=== PATIENT | male | born 1940 | race Caucasian/White ===

== ENCOUNTER 2016-10-18 23:54 | Inpatient (IN) | payer MEDICARE, OTHER ==
[2016-10-18 23:55] VITALS: BMI 27.7
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
[2016-10-19] MEDS ORDERED: Aspirin 325 mg EC Tablets PO STA (00:05)
[2016-10-19] MEDS ORDERED: Aspirin 325 mg EC Tablets PO ONE (00:14)
[2016-10-19 00:19] LABS: BASO # 0.1 K/uL (0.0-0.2); EOS # 0.4 K/uL (0.0-0.7); EOS % 3.9 % (0.0-4.0); HEMATOCRIT 35.4 % (35.0-51.0); LYMPH # 2.8 K/uL (1.0-4.3); MEAN CELL VOLUME 91.8 fL (80.0-94.0); MEAN CORPUSCULAR HEMOGLOBIN 30.8 pg (27.0-31.0); MEAN CORPUSCULAR HGB CONC 33.6 g/dL (33.0-37.0); MEAN PLATELET VOLUME 7.4 fL (7.2-11.7); MONO # 0.6 K/uL (0.0-0.8); RED CELL DISTRIBUTION WIDTH 14.7 % (11.5-14.5); WHITE BLOOD COUNT 9.2 K/uL (4.8-10.8)
[2016-10-19 00:36] LABS: ALB/GLOB RATIO 1.3 (1.0-2.1); ALKALINE PHOSPHATASE 118 U/L (38-126); ALT/SGPT 41 U/L (21-72); AST/SGOT 42 U/L (17-59); BILIRUBIN,TOTAL 0.6 mg/dL (0.2-1.3); BLOOD UREA NITROGEN 14 mg/dL (9-20); CALCIUM 8.2 mg/dl (8.6-10.4); CARBON DIOXIDE 23 mmol/L (22-30); CHLORIDE 99 mmol/L (98-107); GFR AFRICAN-AMERICAN > 60; GLUCOSE,RANDOM 114 mg/dL (75-110); POTASSIUM 4.8 mmol/L (3.6-5.2); SODIUM 132 mmol/L (132-148); TOTAL PROTEIN 7.1 g/dL (6.3-8.3)
[2016-10-19 02:39] LABS: RBC URINE 1 /hpf (0-3); URINE BILIRUBIN NEGATIVE (NEGATIVE); URINE BLOOD NEGATIVE (NEGATIVE); URINE COLOR Yellow (YELLOW); URINE GLUCOSE (UA) NORMAL (Normal); URINE KETONE NEGATIVE (NEGATIVE); URINE LEUKOCYTE ESTERASE NEG Leu/uL (Negative); URINE PROTEIN NEGATIVE (NEGATIVE); URINE UROBILINOGEN NORMAL mg/dL (0.2-1.0); WBC URINE < 1 /hpf (0-5)
--- NOTE | 2016-10-19 06:42 | CP.PCM.HP ---
<Torito Ahn - Last Filed: 10/19/16 06:49> History of Present Illness - History of Present Illness History of Present Illness: PGY1 Medicine Note for Dr. Wynn 76 yo male with a PMH of HTN and hypothyroidism presenting to the ED with complaint of chest pressure and fluttering. The patient states that he began to feel a flutter in his chest around 10pm. This feeling was soon followed by the feeling of his heart sinking and pressure in his chest. The patient states that his daughter took his blood pressure and found it to be elevated but he does not remember exactly how high. They decided to call the ambulance at this time. Patient states he has never had this happen to him before. The pressure did not radiate or cause any pain. He denies diaphoresis, n/v, visual changes, lightheadedness, dizziness or numbness/tingling. Upon arrival to the ED, EKG showed a heart rate of 160 with SVT. 25mg IVP of Cardizem was given, and the patient returned to R. The patient stated that he had no complaints, no more flutter feeling and no more pressure at the time of our arrival for examination. He just wanted to sleep. Denies f/c, d/c, weight changes or muscle weakness. PMH: HTN, Hypothyroidism PSH: none Social: Denies tobacco, alcohol and/or illicit drug use Family: unknown Allergy: pollen, NKDA Present on Admission - Present on Admission Any Indicators Present on Admission: No Review of Systems - Review of Systems All systems: reviewed and no additional remarkable complaints except - Constitutional Constitutional: As Per HPI - EENT Eyes: As Per HPI Nose/Mouth/Throat: As Per HPI - Cardiovascular Cardiovascular: As Per HPI - Respiratory Respiratory: As Per HPI - Gastrointestinal Gastrointestinal: As Per HPI - Genitourinary Genitourinary: As Per HPI - Reproductive: Male Reproductive:Male: As Per HPI - Musculoskeletal Musculoskeletal: As Per HPI - Integumentary Integumentary: As Per HPI - Neurological Neurological: As Per HPI - Psychiatric Psychiatric: As Per HPI - Endocrine Endocrine: As Per HPI - Hematologic/Lymphatic Hematologic: As Per HPI Past Patient History - Infectious Disease Hx of Infectious Diseases: None - Past Medical History & Family History Past Medical History?: Yes - Past Social History Smoking Status: Former Smoker - CARDIAC Hx Cardiac Disorders: No Hx Hypertension: Yes - PULMONARY Hx Asthma: Yes Hx Chronic Obstructive Pulmonary Disease (COPD): Yes - NEUROLOGICAL Hx Neurological Disorder: No - HEENT Hx HEENT Problems: No - RENAL Hx Chronic Kidney Disease: No - ENDOCRINE/METABOLIC Hx Endocrine Disorders: Yes Hx Hyperthyroidism: Yes - HEMATOLOGICAL/ONCOLOGICAL Hx Blood Disorders: No - INTEGUMENTARY Hx Dermatological Problems: No - MUSCULOSKELETAL/RHEUMATOLOGICAL Hx Falls: No - GASTROINTESTINAL Hx Gastrointestinal Disorders: Yes - GENITOURINARY/GYNECOLOGICAL Hx Genitourinary Disorders: No - PSYCHIATRIC Hx Substance Use: No - SURGICAL HISTORY Hx Surgeries: No - ANESTHESIA Hx Anesthesia: No Hx Anesthesia Reactions: No Hx Malignant Hyperthermia: No Has any member of the family had a problem w/ anesthesia?: No Meds Allergies/Adverse Reactions: Allergies Allergy/AdvReac Type Severity Reaction Status Date / Time pollen extracts Allergy ITCHING Verified 10/19/16 00:13 Physical Exam - Constitutional Appears: Non-toxic, No Acute Distress - Head Exam Head Exam: ATRAUMATIC, NORMOCEPHALIC - Eye Exam Eye Exam: EOMI, Normal appearance - ENT Exam ENT Exam: Mucous Membranes Moist - Respiratory Exam Respiratory Exam: Clear to Auscultation Bilateral, NORMAL BREATHING PATTERN. absent: Accessory Muscle Use, Wheezes, Respiratory Distress - Cardiovascular Exam Cardiovascular Exam: REGULAR RHYTHM, +S1, +S2 - GI/Abdominal Exam GI & Abdominal Exam: Normal Bowel Sounds, Soft. absent: Distended, Firm, Guarding, Rigid, Tenderness - Extremities Exam Extremities exam: Negative for: calf tenderness, pedal edema - Neurological Exam Neurological exam: Alert, Oriented x3 - Psychiatric Exam Psychiatric exam: Normal Affect (very tired.), Normal Mood - Skin Skin Exam: Dry, Normal Color, Warm Results - Vital Signs Recent Vital Signs: Last Vital Signs Temp 97.7 F 10/19/16 05:06 Pulse 52 L 10/19/16 05:46 Resp 16 10/19/16 05:06 BP 114/54 L 10/19/16 05:06 Pulse Ox 97 10/19/16 06:02 - Labs Result Diagrams: 10/19/16 00:15 10/19/16 00:15 Assessment & Plan - Assessment and Plan (Free Text) Assessment: Chest Pressure with SVT 25mg IVP of Cardizem given in ED --> pt returned to [facility] Cardiology Consulted - Dr. Harrell - help appreciated Trop. negative x 1 F/U ECHO Heart Healthy Diet HTN Unknown home medications Will monitor for now Hypothyroid TSH - 11.3 Prophylactic Care Lovenox 40mg SC daily Protonix 40mg PO daily Case discussed with Dr. Tianna Ahn PGY1 - Date & Time Date: 10/19/16 Time: 02:00 <Dwight Wynn - Last Filed: 10/19/16 07:27> Results - Vital Signs Recent Vital Signs: Last Vital Signs Temp 97.7 F 10/19/16 05:06 Pulse 52 L 10/19/16 05:46 Resp 16 10/19/16 05:06 BP 114/54 L 10/19/16 05:06 Pulse Ox 97 10/19/16 06:02 - Labs Result Diagrams: 10/19/16 00:15 10/19/16 00:15 Attending/Attestation - Attestation I have personally seen and examined this patient.: Yes I have fully participated in the care of the patient.: Yes I have reviewed all pertinent clinical information: Yes Notes (Text): SVT sustained causing chest pressure, resolved with single dose cardizem iv, no clear precipitating factors. Plan * observe on tele, check troponin * Low dose betablocker if tolerated * Echo to r/o any cardiomyopathy * Ischemic w/u probably out patient stress test
[2016-10-19] MEDS: Enoxaparin 40 mg Syringe SC SCH (10:10)
[2016-10-19] MEDS: Pantoprazole 40 mg EC Tab PO SCH (10:10)
--- NOTE | 2016-10-19 12:43 | RAD ---
PROCEDURE: CHEST RADIOGRAPH, 1 VIEW. Portable study 00:39. HISTORY: chest pain COMPARISON: 08/16/2015. FINDINGS: LUNGS: Clear. PLEURA: No pneumothorax or pleural fluid seen. CARDIOVASCULAR: No radiographic findings to suggest acute or significant cardiovascular disease. OSSEOUS STRUCTURES: No significant abnormalities. VISUALIZED UPPER ABDOMEN: Normal. OTHER FINDINGS: None. IMPRESSION: No active disease. No acute/significant interval changes.
--- NOTE | 2016-10-19 14:36 | CP.PCM.PN ---
<Romi Maldonado - Last Filed: 10/19/16 14:16> Subjective - Date & Time of Evaluation Date of Evaluation: 10/19/16 Time of Evaluation: 11:15 - Subjective Subjective: Resident Progress Note for Dr. Hernandez Patient seen and examined at bedside. Patient was resting in bed comfortably with daughter and son in law in the room. Patient reports his chest discomfort has resolved. Patient says his PMD Dr. Jasso, started him on synthroid 25mcg about 6 months ago for which he forgets to take sometimes. Patient was instructed PMD to have more thyroid testings done but he keeps on forgetting to do so. Patient currently denies headache, fever, chills, SOB, chest pain, nausea , vomiting, or diarrhea. Objective - Vital Signs/Intake and Output Vital Signs (last 24 hours): Temp Pulse Resp BP Pulse Ox 97.4 F L 51 L 19 122/69 100 10/19/16 08:32 10/19/16 08:32 10/19/16 08:32 10/19/16 08:32 10/19/16 08:32 - Medications Medications: Current Medications Enoxaparin Sodium (Lovenox) 40 mg SC DAILY [facility] Last Admin: 10/19/16 10:10 Dose: 40 mg Pantoprazole Sodium (Protonix Ec Tab) 40 mg PO DAILY [facility] Last Admin: 10/19/16 10:10 Dose: 40 mg Pneumococcal Polyvalent Vaccine (Pneumovax 23 Vaccine) 0.5 ml IM .ONCE ONE Stop: 10/21/16 10:01 - Labs Labs: PT 11.3 SECONDS (9.7-12.2) 10/19/16 00:15 INR 1.0 10/19/16 00:15 APTT 32 SECONDS (21-34) 10/19/16 00:15 - Constitutional Appears: Well, Non-toxic, No Acute Distress - Head Exam Head Exam: ATRAUMATIC, NORMAL INSPECTION - Eye Exam Eye Exam: EOMI, Normal appearance - ENT Exam ENT Exam: Mucous Membranes Moist - Neck Exam Neck Exam: Normal Inspection - Respiratory Exam Respiratory Exam: Clear to Ausculation Bilateral, NORMAL BREATHING PATTERN. absent: Respiratory Distress - Cardiovascular Exam Cardiovascular Exam: REGULAR RHYTHM, +S1, +S2. absent: Murmur - GI/Abdominal Exam GI & Abdominal Exam: Soft, Normal Bowel Sounds. absent: Tenderness - Extremities Exam Extremities Exam: Normal Capillary Refill - Neurological Exam Neurological Exam: Alert, Awake, Oriented x3 - Psychiatric Exam Psychiatric exam: Normal Affect, Normal Mood - Skin Skin Exam: Normal Color, Warm <Larry Hernandez - Last Filed: 10/19/16 21:48> Objective - Vital Signs/Intake and Output Vital Signs (last 24 hours): Temp Pulse Resp BP Pulse Ox 97.4 F L 54 L 20 127/61 98 10/19/16 15:40 10/19/16 21:21 10/19/16 15:40 10/19/16 15:40 10/19/16 15:40 Intake and Output: 10/19/16 10/20/16 18:59 06:59 Intake Total 480 500 Balance 480 500 - Medications Medications: Current Medications Enoxaparin Sodium (Lovenox) 40 mg SC DAILY [facility] Last Admin: 10/19/16 10:10 Dose: 40 mg Levothyroxine Sodium (Synthroid) 75 mcg PO DAILY@0630 [facility] Oxcarbazepine (Trileptal) 300 mg PO BID [facility] Pantoprazole Sodium (Protonix Ec Tab) 40 mg PO DAILY [facility] Last Admin: 10/19/16 10:10 Dose: 40 mg Pneumococcal Polyvalent Vaccine (Pneumovax 23 Vaccine) 0.5 ml IM .ONCE ONE Stop: 10/21/16 10:01 - Labs Labs: PT 11.3 SECONDS (9.7-12.2) 10/19/16 00:15 INR 1.0 10/19/16 00:15 APTT 32 SECONDS (21-34) 10/19/16 00:15 Attending/Attestation - Attestation I have personally seen and examined this patient.: Yes I have fully participated in the care of the patient.: Yes I have reviewed all pertinent clinical information, including history, physical exam and plan: Yes Notes (Text): 10/19/16 21:34 Patient was seen and examined at 10:20 AM 10/19/16 Patient was admitted by overnight Hospitalist Team for evaluation of Chest Pressure and Fluttering sensation that started at 10 PM on 10/18/16. When patient arrived in the ER he was found to be in SVT with heart rate in the 150s. He was given Cardizem 25 mg IVP and this returned him to [facility]. He was admitted to the Telemetry Unit for further monitoring. Currently upon FULL ROS there is NO chest pain, NO palpitations/fluttering, NO SOB/Cough/Wheezing, NO dysphagia/odynophagia, NO abdominal pain, NO n/v/d/c, NO black/bloody stools, NO burning/pain with urination, NO lightheadedness/ dizziness, NO headache, NO new changes in vision/eye pain/loss of vision, NO new changes in hearing/ear pain/tinnitus, NO paresthesias, NO edema Exam: General: AAOx3, NAD HEENT: NCA, EOMI, PERRLA, NO cervical/supraclavicular/submandibular lymphadenopathy, NO pharyngeal erythema/exudate, Mucous Membranes are moist, Nasal Turbinates are nonedematous/nonerythematous Cardio: NS1 and NS2, NO M/R/G Respiratory: CTA B/L, NO R/R/W GI: BSx4, Soft, NT, ND, NO HSM, NO guarding/rebound tenderness Ext: Pulses are strong and equal, Capillary Refill is 2 seconds, NO edema Neuro: CN II through XII are grossly intact Assessment and Plan: 1). SVT Cardiolgist Dr. Harrell F/U 2D Echocardiogram F/U Troponin #2 at 8:30 AM and #3 at 2:30 PM Currently heart rate is in the 50s and 60s 2). HTN Blood Pressure is currently under control and home medication of Losartan and Hydralazine (as per medication summary history) is being held. 3). Hypothyroidism Levothyroxine 75 mcg PO 1x/day 4). Trigeminal Neuralgia? Home medication of Oxcarbazepine 150 mg 2 tab PO 2x/day was started Patient explained it was for abnormal sensation around mouth and cheeks Medicine Team please call office of Neurologist Dr. Grecia Taveras on 10/20/16 for details as to why patient is on this medication 5). Prophylaxis Lovenox 40 mg SC 1x/day Protonix 40 mg PO 1x/day I spoke with patient's daughter earlier after my exam of patient and instructed her to bring in all of patient's medications from home as patient could not provide names or dosages and as [facility] [phone] did not answer phone. What daughter brought later in the evening was the Levothyroxine, Oxcarbazepine, and 5 remaining tablets of a Medrol Dose Raheel (prescribed by [facility] [employer] Dr. Hay). Medicine Team please call the office of Dr. Hay on 10/20/16 as to why patient is on this medication (which was not restarted during this admission) as patient stated that it was for phlegm but stated that he was not coughing or short of breath. Larry Hernandez D.O. 10/19/16 21:41
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
[2016-10-20] MEDS: Levothyroxine 75 MCG TAB PO SCH (06:34)
[2016-10-20 06:40] LABS: BLOOD UREA NITROGEN 19 mg/dL (9-20); CALCIUM 8.9 mg/dl (8.6-10.4); CARBON DIOXIDE 27 mmol/L (22-30); CHLORIDE 95 mmol/L (98-107); GFR AFRICAN-AMERICAN > 60; GLUCOSE,RANDOM 87 mg/dL (75-110); MAGNESIUM 1.9 mg/dL (1.6-2.3); PHOSPHOROUS 3.5 mg/dL (2.5-4.5); POTASSIUM 4.5 mmol/L (3.6-5.2); SODIUM 131 mmol/L (132-148)
[2016-10-20 06:50] LABS: BASO # 0.1 K/uL (0.0-0.2); BASO % 0.6 % (0.0-2.0); EOS # 0.4 K/uL (0.0-0.7); EOS % 4.6 % (0.0-4.0); HEMATOCRIT 36.7 % (35.0-51.0); LYMPH % 21.9 % (20.0-40.0); MEAN CELL VOLUME 92.1 fL (80.0-94.0); MEAN CORPUSCULAR HEMOGLOBIN 30.5 pg (27.0-31.0); MEAN CORPUSCULAR HGB CONC 33.1 g/dL (33.0-37.0); MEAN PLATELET VOLUME 7.1 fL (7.2-11.7); MONO # 0.7 K/uL (0.0-0.8); MONO % 7.1 % (0.0-10.0); RED CELL DISTRIBUTION WIDTH 14.5 % (11.5-14.5); WHITE BLOOD COUNT 9.3 K/uL (4.8-10.8)
[2016-10-20 07:12] LABS: THYROID STIMULATING HORMONE 4.81 mIU/L (0.46-4.68)
[2016-10-20 08:30] VITALS: RESP 20
[2016-10-20] MEDS: Enoxaparin 40 mg Syringe SC SCH (09:58)
[2016-10-20] MEDS: Pantoprazole 40 mg EC Tab PO SCH (09:58)
--- NOTE | 2016-10-20 12:56 | CP.PCM.PN ---
Subjective - Date & Time of Evaluation Date of Evaluation: 10/20/16 Time of Evaluation: 12:56 - Subjective Subjective: Pt tolerating PO had svt that terminated with meds.He was under a considerable amount of stress and was having a dispute and found his heart palpitations and alerted ems. 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 No CP,SOB,N/V,Fever, double vision ,abdominal pain Objective - Vital Signs/Intake and Output Vital Signs (last 24 hours): Temp Pulse Resp BP Pulse Ox 98.4 F 65 20 151/79 H 97 10/20/16 08:29 10/20/16 08:29 10/20/16 08:29 10/20/16 08:29 10/20/16 08:29 Intake and Output: 10/20/16 10/20/16 06:59 18:59 Intake Total 500 Balance 500 - Medications Medications: Current Medications Enoxaparin Sodium (Lovenox) 40 mg SC DAILY [facility] Last Admin: 10/20/16 09:58 Dose: 40 mg Levothyroxine Sodium (Synthroid) 75 mcg PO DAILY@0630 [facility] Last Admin: 10/20/16 06:34 Dose: 75 mcg Oxcarbazepine (Trileptal) 300 mg PO BID [facility] Last Admin: 10/20/16 09:58 Dose: 300 mg Pantoprazole Sodium (Protonix Ec Tab) 40 mg PO DAILY [facility] Last Admin: 10/20/16 09:58 Dose: 40 mg Pneumococcal Polyvalent Vaccine (Pneumovax 23 Vaccine) 0.5 ml IM .ONCE ONE Stop: 10/21/16 10:01 - Labs Labs: 10/20/16 06:22 10/20/16 06:22 PT 11.3 SECONDS (9.7-12.2) 10/19/16 00:15 INR 1.0 10/19/16 00:15 APTT 32 SECONDS (21-34) 10/19/16 00:15 - Constitutional Appears: Well - Head Exam Head Exam: ATRAUMATIC - Eye Exam Eye Exam: Normal appearance - ENT Exam ENT Exam: Mucous Membranes Moist - Respiratory Exam Respiratory Exam: Clear to Ausculation Bilateral, NORMAL BREATHING PATTERN - Cardiovascular Exam Cardiovascular Exam: REGULAR RHYTHM - GI/Abdominal Exam GI & Abdominal Exam: Normal Bowel Sounds - Exam External exam: NORMAL EXTERNAL EXAM. absent: Ecchymosis - Extremities Exam Extremities Exam: Normal Inspection. absent: Pedal Edema - Neurological Exam Neurological Exam: Alert, Awake - Psychiatric Exam Psychiatric exam: Normal Affect, Normal Mood - Skin Skin Exam: Normal Color, Warm Assessment and Plan (1) Palpitations Assessment & Plan: Continue asthma medications rate control with cardizem if tolerated refused svt ablation at present follow up out pt with pmd Status: Acute
--- NOTE | 2016-10-20 19:58 | PN ---
DATE: The patient denies any palpitation, chest pain, no reported SVT on the monitor overnight. PHYSICAL EXAMINATION VITAL SIGNS: Blood pressure 151/79, heart rate 65, temperature 98.4, respirations 20. Most of the time heart rate is in the 50s. HEENT: Normocephalic. CHEST: Clear. HEART: S1 and S2 regular. EXTREMITIES: No edema. LABORATORY DATA: Hemoglobin and hematocrit, white count and platelet counts today are within normal limits. SMA-7 within normal limit, glucose 131 and chloride of 95. Three sets of troponins are negative. Repeat TSH level is 4.81. Preliminary echo study report suggests normal ejection fraction. ASSESSMENT: 1. Reentrant supraventricular tachycardia. 2. Hypertension. 3. Hypothyroidism. 4. Mild sinus bradycardia. RECOMMENDATIONS: Continue current Synthroid. Continue telemetry monitoring. Awaiting final echo report. I requested electrophysiology consult from . Awaiting medical records from [facility] Emergency Room visit a month and half ago. Joe Harrell MD
--- NOTE | 2016-10-20 21:07 | CP.PCM.PN ---
<Torito Ahn - Last Filed: 10/20/16 21:03> Subjective - Date & Time of Evaluation Date of Evaluation: 10/20/16 Time of Evaluation: 09:50 - Subjective Subjective: PGY1 Medicine Note for for Dr. Cadet Patient seen and examined this morning. Patient is resting comfortably in bed and has no complaints. Patient states that he has not experienced any chest pressure or pain since he has been treated in the ED. Patient denies f/c, n/v, d /c, sob, cp, dizziness or lightheadedness. Objective - Vital Signs/Intake and Output Vital Signs (last 24 hours): Temp Pulse Resp BP Pulse Ox 97.7 F 59 L 20 153/76 H 96 10/20/16 16:01 10/20/16 16:01 10/20/16 16:01 10/20/16 16:01 10/20/16 16:01 Intake and Output: 10/20/16 10/21/16 18:59 06:59 Intake Total 480 Balance 480 - Medications Medications: Current Medications Enoxaparin Sodium (Lovenox) 40 mg SC DAILY [facility] Last Admin: 10/20/16 09:58 Dose: 40 mg Levothyroxine Sodium (Synthroid) 75 mcg PO DAILY@0630 [facility] Last Admin: 10/20/16 06:34 Dose: 75 mcg Oxcarbazepine (Trileptal) 300 mg PO BID [facility] Last Admin: 10/20/16 17:39 Dose: 300 mg Pantoprazole Sodium (Protonix Ec Tab) 40 mg PO DAILY [facility] Last Admin: 10/20/16 09:58 Dose: 40 mg Pneumococcal Polyvalent Vaccine (Pneumovax 23 Vaccine) 0.5 ml IM .ONCE ONE Stop: 10/21/16 10:01 - Labs Labs: 10/20/16 06:22 10/20/16 06:22 PT 11.3 SECONDS (9.7-12.2) 10/19/16 00:15 INR 1.0 10/19/16 00:15 APTT 32 SECONDS (21-34) 10/19/16 00:15 - Constitutional Appears: Non-toxic, No Acute Distress - Head Exam Head Exam: ATRAUMATIC, NORMOCEPHALIC - Eye Exam Eye Exam: EOMI, Normal appearance - ENT Exam ENT Exam: Mucous Membranes Moist - Respiratory Exam Respiratory Exam: Clear to Ausculation Bilateral, NORMAL BREATHING PATTERN. absent: Accessory Muscle Use, Wheezes, Respiratory Distress - Cardiovascular Exam Cardiovascular Exam: REGULAR RHYTHM, +S1, +S2 - GI/Abdominal Exam GI & Abdominal Exam: Soft, Normal Bowel Sounds. absent: Distended, Guarding, Rigid, Tenderness - Neurological Exam Neurological Exam: Alert, Awake, Normal Gait, Oriented x3 - Psychiatric Exam Psychiatric exam: Normal Affect, Normal Mood - Skin Skin Exam: Dry, Normal Color, Warm Assessment and Plan - Assessment and Plan (Free Text) Plan: 1). SVT Cardiolgist Dr. Harrell F/U 2D Echocardiogram - awaiting report Troponin negative x 3 Currently heart rate is in the low 50s and 60s F/U CT head w/o; Carotid Doppler, per cardio recs 2). HTN Blood Pressure is currently under control and home medication of Losartan and Hydralazine (as per medication summary history) is being held. 3). Hypothyroidism Levothyroxine 75 mcg PO 1x/day TSH 4.81; Free T4 .42 4). Trigeminal Neuralgia? Home medication of Oxcarbazepine 150 mg 2 tab PO 2x/day was started Patient explained it was for abnormal sensation around mouth and cheeks Medicine Team please call office of Neurologist Dr. Grecia Taveras on 10/20/16 for details as to why patient is on this medication - Called, awaiting return call 5). Prophylaxis Lovenox 40 mg SC 1x/day Protonix 40 mg PO 1x/day <García Cadet - Last Filed: 11/24/16 15:15> Objective - Vital Signs/Intake and Output Vital Signs (last 24 hours): Temp Pulse Resp BP Pulse Ox 97.9 F 68 20 129/75 98 10/21/16 16:00 10/21/16 16:00 10/21/16 16:00 10/21/16 16:00 10/21/16 16:00 - Labs Labs: 10/20/16 06:22 10/20/16 06:22 PT 11.3 SECONDS (9.7-12.2) 10/19/16 00:15 INR 1.0 10/19/16 00:15 APTT 32 SECONDS (21-34) 10/19/16 00:15 Attending/Attestation - Attestation I have personally seen and examined this patient.: Yes I have fully participated in the care of the patient.: Yes I have reviewed all pertinent clinical information, including history, physical exam and plan: Yes Notes (Text): 1). SVT 2). HTN 3). Hypothyroidism 4). Trigeminal Neuralgia?
--- NOTE | 2016-10-20 23:41 | CARD ---
APPROVED REPORT EXAM: Two-dimensional and M-mode echocardiogram with Doppler and color Doppler. Other Information Quality : GoodRhythm : Atrial Fibrillation INDICATION Chest pressure Palpitations RISK FACTORS Hypertension M-Mode DIMENSIONS RVDd1.65 (2.1-3.2cm)Left Atrium (MM)2.76 (2.5-4.0cm) IVSd1.05 (0.7-1.1cm)Aortic Root4.29 (2.2-3.7cm) LVDd5.00 (4.0-5.6cm)Aortic Cusp Exc.1.86 (1.5-2.0cm) PWd0.93 (0.7-1.1cm)FS (%) 40 % LVDs2.98 (2.0-3.8cm)LVEF (%)71 (>50%) Mitral Valve MV E Kfeyybzk24.5cm/sMV A Vghbpqdi807.4cm/sE/A ratio0.5 TDI E/Lateral E'0.0E/Medial E'0.0 Tricuspid Valve TR Peak Iwmqprws319en/sTR Peak Gr.[id number] LEFT VENTRICLE The left ventricle is normal size. There is normal left ventricular wall thickness. Left ventricle systolic function is normal with Ejection Fraction of >70%. There is normal LV segmental wall motion. Transmitral Doppler flow pattern is abnormal.Grade I-abnormal relaxation pattern. No left ventricle thrombus noted on this study. RIGHT VENTRICLE The right ventricle is normal size. The right ventricular systolic function is normal. ATRIA The left atrium size is normal. The right atrium size is normal. AORTIC VALVE The aortic valve is mildly sclerotic. No aortic regurgitation is present. There is no aortic valvular stenosis. There is no aortic valvular vegetation. MITRAL VALVE Mitral annular calcification is moderate. There is no evidence of mitral valve prolapse. There is no mitral valve stenosis. There is no mitral valve regurgitation noted. TRICUSPID VALVE The tricuspid valve is normal in structure. There is mild tricuspid regurgitation. Right ventricular systolic pressure is estimated at less than 30 mmHg. There is no pulmonary hypertension. There is no tricuspid valve prolapse or vegetation. There is no tricuspid valve stenosis. PULMONIC VALVE The pulmonic valve is not well visualized. GREAT VESSELS There is moderate aortic root dilatation. The IVC is normal in size and collapses >50% with inspiration. PERICARDIAL EFFUSION There is no pericardial effusion. There is no pleural effusion. <Conclusion> The left ventricle is normal size. Left ventricle systolic function is normal with Ejection Fraction of >70%. Transmitral Doppler flow pattern is abnormal.Grade I-abnormal relaxation pattern. The right ventricle is normal size. The right ventricular systolic function is normal. The left atrium size is normal. The right atrium size is normal. There is mild tricuspid regurgitation. There is moderate aortic root dilatation.
[2016-10-21] MEDS ORDERED: Albuterol-Ipratrop 3 mg / 0.5 (3 ml) UD INH STA (03:45)
[2016-10-21] MEDS: Levothyroxine 75 MCG TAB PO SCH (06:33)
--- NOTE | 2016-10-21 09:33 | CT ---
PROCEDURE: CT HEAD WITHOUT CONTRAST. HISTORY: New onset arrhythmia COMPARISON: None available. TECHNIQUE: Axial computed tomography images were obtained through the head/brain without intravenous contrast. Radiation dose: Total exam DLP = 879.55 mGy-cm. This CT exam was performed using one or more of the following dose reduction techniques: Automated exposure control, adjustment of the mA and/or kV according to patient size, and/or use of iterative reconstruction technique. FINDINGS: HEMORRHAGE: No acute parenchymal, subarachnoid or extra-axial hemorrhage. BRAIN: There is a wedge-shaped area of CSF like attenuation in the right parasagittal posterior fossa that may represent a prominent right wing of the cisterna magna or an area of encephalomalacia. Followup nonemergent MRI of the brain could be performed further evaluation. Additionally, there also appears to be mild chronic periventricular white matter ischemic changes that extend peripherally into the deep white matter both cerebral hemispheres. Moderate atrophy. VENTRICLES: No evidence of obstructive hydrocephalus CALVARIUM: Unremarkable. PARANASAL SINUSES: Opacification right chamber sphenoid sinus. MASTOID AIR CELLS: Unremarkable as visualized. No inflammatory changes. OTHER FINDINGS: Changes of bilateral cataract surgery IMPRESSION: No acute intracranial hemorrhage. Wedge-shaped area of CSF like attenuation right parasagittal posterior fossa region which could represent of prominent right wing cisterna magna or an area of encephalomalacia. Followup nonemergent MRI could be performed further evaluation. Mild chronic periventricular white matter ischemic changes Moderate atrophy.
[2016-10-21 09:42] VITALS: O2SAT 98
[2016-10-21] MEDS: Pantoprazole 40 mg EC Tab PO SCH (09:42)
[2016-10-21] MEDS: Enoxaparin 40 mg Syringe SC SCH (09:43)
[2016-10-21 09:49] VITALS: PULSE 68
[2016-10-21] MEDS ORDERED: Pneumococcal 23-Valent Vaccine IM ONE (10:00)
--- NOTE | 2016-10-21 10:25 | CP.PCM.PN ---
<ELLYN LOZANO - Last Filed: 10/21/16 17:20> Subjective - Date & Time of Evaluation Date of Evaluation: 10/21/16 Time of Evaluation: 10:21 - Subjective Subjective: Ellyn Lozano, PGY1, Progress Note for Dr. Mehta: Pt seen and examined at bedside. No acute events overnight. Denies cp, sob, diaphoresis, n/v/d, f/c, abdmonial pain, palpitations/fluttering, dysuria. ST elevations noted on tele monitor, will obtain 12 lead EKG. Objective - Vital Signs/Intake and Output Vital Signs (last 24 hours): Temp Pulse Resp BP Pulse Ox 97.4 F L 68 20 161/79 H 98 10/21/16 08:30 10/21/16 09:49 10/21/16 08:30 10/21/16 09:49 10/21/16 08:30 - Medications Medications: Current Medications Enoxaparin Sodium (Lovenox) 40 mg SC DAILY [facility] Last Admin: 10/21/16 09:43 Dose: 40 mg Levothyroxine Sodium (Synthroid) 75 mcg PO DAILY@0630 [facility] Last Admin: 10/21/16 06:33 Dose: 75 mcg Oxcarbazepine (Trileptal) 300 mg PO BID [facility] Last Admin: 10/21/16 09:42 Dose: 300 mg Pantoprazole Sodium (Protonix Ec Tab) 40 mg PO DAILY [facility] Last Admin: 10/21/16 09:42 Dose: 40 mg - Labs Labs: 10/20/16 06:22 10/20/16 06:22 PT 11.3 SECONDS (9.7-12.2) 10/19/16 00:15 INR 1.0 10/19/16 00:15 APTT 32 SECONDS (21-34) 10/19/16 00:15 - Constitutional Appears: No Acute Distress - Head Exam Head Exam: ATRAUMATIC, NORMOCEPHALIC - Eye Exam Eye Exam: PERRL - ENT Exam ENT Exam: Mucous Membranes Moist - Respiratory Exam Respiratory Exam: Clear to Ausculation Bilateral - Cardiovascular Exam Cardiovascular Exam: RRR, +S1, +S2. absent: Murmur - GI/Abdominal Exam GI & Abdominal Exam: Soft, Normal Bowel Sounds. absent: Tenderness - Extremities Exam Extremities Exam: absent: Calf Tenderness, Pedal Edema - Neurological Exam Neurological Exam: Alert, Awake, Oriented x3 - Psychiatric Exam Psychiatric exam: Normal Mood - Skin Skin Exam: Dry, Intact, Warm Assessment and Plan - Assessment and Plan (Free Text) Assessment: 76M with PMH HTN, hypothyroidism, presents with new onset of SVT. In ED, HR 158 , SVT, Cardizem 25mg IVP given, which converted to NSR. Trops neg x3, BNP 209, echo shows EF>70%, no dilated CM, grade1 abnormal relaxations pattern, moderate aortic root dilatation. Currently, pt's HR controlled, 53-68, stable, can discharge on digoxin 0.125 mg Po daily, f/u Dr. Armijo (Cardio) in 1 week. Plan: New onset SVT/afib: - On admission, EKG HR 158, afib, RBBB. Pt c/o chest pressure and fluttering few hours [employer]. Denied diaphoresis, f/c/n/v/d, syncope, abdominal pain. Cardizem 25mg IVP given ->converted to NSR. - Echo 10/19 shows EF>70%, grade 1 abnormal relaxation pattern, mild tricuspid regurgutation, moderate aortic root dilatation. - Head CT 10/20 shows no ICH. prominent R wing cisterna magna or area of encephalomalacia. F/u MRI. mild chronic periventricular white matter ischemia. moderate atrophy. - F/u carotic doppler results, study completed - CXR neg for infiltrates or pleural effusions. - trop negx3, bnp 209 - home meds losartan and hydralazine held for hypotension. - Can discharge pt, on digoxin 0.125 mg PO daily, f/u with Dr. Armijo within 1 week, may need SVT ablation (outpatient if necessary). - Can resume home BP meds losartan and hydralazine as well. Discussed with Dr. Mehta. Ellyn Lozano, PGY1 <Diony Mehta - Last Filed: 11/02/16 05:57> Objective - Vital Signs/Intake and Output Vital Signs (last 24 hours): Temp Pulse Resp BP Pulse Ox 97.9 F 68 20 129/75 98 10/21/16 16:00 10/21/16 16:00 10/21/16 16:00 10/21/16 16:00 10/21/16 16:00 - Labs Labs: 10/20/16 06:22 10/20/16 06:22 PT 11.3 SECONDS (9.7-12.2) 10/19/16 00:15 INR 1.0 10/19/16 00:15 APTT 32 SECONDS (21-34) 10/19/16 00:15 Attending/Attestation - Attestation I have personally seen and examined this patient.: Yes I have fully participated in the care of the patient.: Yes I have reviewed all pertinent clinical information, including history, physical exam and plan: Yes Notes (Text): 11/02/16 05:56 Pt of followed by Dr Zofia MACKEY now under control pt states brought on by sress will Rx rate control med and follow up with pmd as out pt
--- NOTE | 2016-10-21 15:08 | CP.PCM.DIS ---
<Ty Garnett - Last Filed: 10/21/16 21:17> Provider - Provider Date of Admission: 10/19/16 01:33 Attending physician: Dwight Wynn MD Consults: Cards (Tyson) Time Spent in preparation of Discharge (in minutes): 60 Hospital Course - Lab Results Lab Results: Most Recent Lab Values WBC 9.3 K/uL (4.8-10.8) 10/20/16 06:22 RBC 3.99 Mil/uL (4.40-5.90) L 10/20/16 06:22 Hgb 12.1 g/dL (12.0-18.0) 10/20/16 06:22 Hct 36.7 % (35.0-51.0) 10/20/16 06:22 MCV 92.1 fL (80.0-94.0) 10/20/16 06:22 MCH 30.5 pg (27.0-31.0) 10/20/16 06:22 MCHC 33.1 g/dL (33.0-37.0) 10/20/16 06:22 RDW 14.5 % (11.5-14.5) 10/20/16 06:22 Plt Count 244 K/uL (130-400) 10/20/16 06:22 MPV 7.1 fL (7.2-11.7) L 10/20/16 06:22 Neut % (Auto) 65.8 % (50.0-75.0) 10/20/16 06:22 Lymph % (Auto) 21.9 % (20.0-40.0) 10/20/16 06:22 Walker % (Auto) 7.1 % (0.0-10.0) 10/20/16 06:22 Eos % (Auto) 4.6 % (0.0-4.0) H 10/20/16 06:22 Baso % (Auto) 0.6 % (0.0-2.0) 10/20/16 06:22 Neut # 6.1 K/uL (1.8-7.0) 10/20/16 06:22 Lymph # 2.0 K/uL (1.0-4.3) 10/20/16 06:22 Walker # 0.7 K/uL (0.0-0.8) 10/20/16 06:22 Eos # 0.4 K/uL (0.0-0.7) 10/20/16 06:22 Baso # 0.1 K/uL (0.0-0.2) 10/20/16 06:22 PT 11.3 SECONDS (9.7-12.2) 10/19/16 00:15 INR 1.0 10/19/16 00:15 APTT 32 SECONDS (21-34) 10/19/16 00:15 Sodium 131 mmol/L (132-148) L 10/20/16 06:22 Potassium 4.5 mmol/L (3.6-5.2) 10/20/16 06:22 Chloride 95 mmol/L (98-107) L 10/20/16 06:22 Carbon Dioxide 27 mmol/L (22-30) 10/20/16 06:22 Anion Gap 14 (10-20) 10/20/16 06:22 BUN 19 mg/dL (9-20) 10/20/16 06:22 Creatinine 0.9 MG/DL (0.8-1.5) 10/20/16 06:22 Est GFR ( Amer) > 60 10/20/16 06:22 Est GFR (Non-Af Amer) > 60 10/20/16 06:22 Random Glucose 87 mg/dL (75-110) 10/20/16 06:22 Calcium 8.9 mg/dl (8.6-10.4) 10/20/16 06:22 Phosphorus 3.5 mg/dL (2.5-4.5) 10/20/16 06:22 Magnesium 1.9 mg/dL (1.6-2.3) 10/20/16 06:22 Total Bilirubin 0.6 mg/dL (0.2-1.3) 10/19/16 00:15 AST 42 U/L (17-59) 10/19/16 00:15 ALT 41 U/L (21-72) 10/19/16 00:15 Alkaline Phosphatase 118 U/L (38-126) 10/19/16 00:15 Troponin I < 0.0120 ng/mL (0.00-0.120) 10/21/16 13:54 NT-Pro-B Natriuret Pep 209 pg/mL (0-900) 10/19/16 00:15 Total Protein 7.1 g/dL (6.3-8.3) 10/19/16 00:15 Albumin 4.0 g/dL (3.5-5.0) 10/19/16 00:15 Globulin 3.1 gm/dL (2.2-3.9) 10/19/16 00:15 Albumin/Globulin Ratio 1.3 (1.0-2.1) 10/19/16 00:15 Free T4 0.42 ng/dL (0.78-2.19) L 10/20/16 06:22 TSH 3rd Generation 4.81 mIU/L (0.46-4.68) H 10/20/16 06:22 Urine Color Yellow (YELLOW) 10/19/16 00:05 Urine Clarity Clear (Clear) 10/19/16 00:05 Urine pH 6.0 (5.0-8.0) 10/19/16 00:05 Ur Specific [place] 1.014 (1.003-1.030) 10/19/16 00:05 Urine Protein Negative mg/dL (NEGATIVE) 10/19/16 00:05 Urine Glucose (UA) Normal mg/dL (Normal) 10/19/16 00:05 Urine Ketones Negative mg/dL (NEGATIVE) 10/19/16 00:05 Urine Blood Negative (NEGATIVE) 10/19/16 00:05 Urine Nitrate Negative (NEGATIVE) 10/19/16 00:05 Urine Bilirubin Negative (NEGATIVE) 10/19/16 00:05 Urine Urobilinogen Normal mg/dL (0.2-1.0) 10/19/16 00:05 Ur Leukocyte Esterase Neg Irma/uL (Negative) 10/19/16 00:05 Urine WBC (Auto) < 1 /hpf (0-5) 10/19/16 00:05 Urine RBC (Auto) 1 /hpf (0-3) 10/19/16 00:05 - Hospital Course Hospital Course: 76 yo male with a PMH of HTN and hypothyroidism presenting to the ED with complaint of chest pressure and fluttering. The patient states that he began to feel a flutter in his chest around 10pm. This feeling was soon followed by the feeling of his heart sinking and pressure in his chest. The patient states that his daughter took his blood pressure and found it to be elevated but he does not remember exactly how high. They decided to call the ambulance at this time. Patient states he has never had this happen to him before. The pressure did not radiate or cause any pain. He denies diaphoresis, n/v, visual changes, lightheadedness, dizziness or numbness/tingling. Upon arrival to the ED, EKG showed a heart rate of 160 with SVT. 25mg IVP of Cardizem was given, and the patient returned to [facility]. The patient stated that he had no complaints, no more flutter feeling and no more pressure at the time of our arrival for examination. He just wanted to sleep. Denies f/c, d/c, weight changes or muscle weakness. patient had 3 negative trops and he remained in Normal sinus rhythm. An Echo showed an EF of >70%. He was cleared from a cardiac standpoint and was told to follow up in the office to set up a possible SVT ablation. - Date & Time of H&P Date of H&P: 10/19/16 Time of H&P: 06:30 Discharge Exam - Head Exam Head Exam: ATRAUMATIC, NORMOCEPHALIC - Eye Exam Eye Exam: EOMI - ENT Exam ENT Exam: Mucous Membranes Moist - Respiratory Exam Respiratory Exam: NORMAL BREATHING PATTERN, UNREMARKABLE - Cardiovascular Exam Cardiovascular Exam: REGULAR RHYTHM, RRR. absent: Gallop, Irregular Rhythm, JVD , Rubs, Systolic Murmur - GI/Abdominal Exam GI & Abdominal Exam: Normal Bowel Sounds, Soft. absent: Distended, Firm, Tenderness - Neurological Exam Neurological exam: Alert, Oriented x3 - Psychiatric Exam Psychiatric exam: Normal Affect, Normal Mood - Skin Skin Exam: Dry, Intact, Normal Color, Warm Discharge Plan - Discharge Medications Prescriptions: Levothyroxine [Synthroid] 75 mcg PO DAILY@0630 #30 tab Losartan 25 mg PO DAILY #30 OXcarbazepine [Trileptal] 300 mg PO BID #60 tab - Follow Up Plan Condition: FAIR Disposition: HOME/ ROUTINE Instructions: Digoxin (By mouth), Levothyroxine (By mouth), Pneumococcal Polyvalent Vaccine (By injection), Losartan (By mouth), Oxcarbazepine (By mouth) , Atrial Fibrillation (DC), Supraventricular Tachycardia (DC), Hib Vaccine (DC) Additional Instructions: Patient is stable and cleared for discharge from a Cardiac standpoint. He should follow up in Dr. Mehta's office in 1 week. The number to the office is [phone] Patient is stable and cleared for dischard from a medical standpoint. He should follow up with his primary doctor in 1 weeks time. Prescription information to be given at time of discharge. If symptoms return he should return to the ER Pt agrees with the plan Referrals: Diony Mehta MD [Staff Provider] - Clinical Quality Measures - Date & Time of Discharge Summary Date of Discharge Summary: 10/21/16 Time of Discharge Summary: 21:21 <García Cadet - Last Filed: 11/24/16 15:16> Provider - Provider Date of Admission: 10/19/16 01:33 Attending physician: Dwight Wynn MD Hospital Course - Lab Results Lab Results: Most Recent Lab Values WBC 9.3 K/uL (4.8-10.8) 10/20/16 06:22 RBC 3.99 Mil/uL (4.40-5.90) L 10/20/16 06:22 Hgb 12.1 g/dL (12.0-18.0) 10/20/16 06:22 Hct 36.7 % (35.0-51.0) 10/20/16 06:22 MCV 92.1 fL (80.0-94.0) 10/20/16 06:22 MCH 30.5 pg (27.0-31.0) 10/20/16 06:22 MCHC 33.1 g/dL (33.0-37.0) 10/20/16 06:22 RDW 14.5 % (11.5-14.5) 10/20/16 06:22 Plt Count 244 K/uL (130-400) 10/20/16 06:22 MPV 7.1 fL (7.2-11.7) L 10/20/16 06:22 Neut % (Auto) 65.8 % (50.0-75.0) 10/20/16 06:22 Lymph % (Auto) 21.9 % (20.0-40.0) 10/20/16 06:22 Walker % (Auto) 7.1 % (0.0-10.0) 10/20/16 06:22 Eos % (Auto) 4.6 % (0.0-4.0) H 10/20/16 06:22 Baso % (Auto) 0.6 % (0.0-2.0) 10/20/16 06:22 Neut # 6.1 K/uL (1.8-7.0) 10/20/16 06:22 Lymph # 2.0 K/uL (1.0-4.3) 10/20/16 06:22 Walker # 0.7 K/uL (0.0-0.8) 10/20/16 06:22 Eos # 0.4 K/uL (0.0-0.7) 10/20/16 06:22 Baso # 0.1 K/uL (0.0-0.2) 10/20/16 06:22 PT 11.3 SECONDS (9.7-12.2) 10/19/16 00:15 INR 1.0 10/19/16 00:15 APTT 32 SECONDS (21-34) 10/19/16 00:15 Sodium 131 mmol/L (132-148) L 10/20/16 06:22 Potassium 4.5 mmol/L (3.6-5.2) 10/20/16 06:22 Chloride 95 mmol/L (98-107) L 10/20/16 06:22 Carbon Dioxide 27 mmol/L (22-30) 10/20/16 06:22 Anion Gap 14 (10-20) 10/20/16 06:22 BUN 19 mg/dL (9-20) 10/20/16 06:22 Creatinine 0.9 MG/DL (0.8-1.5) 10/20/16 06:22 Est GFR ( Amer) > 60 10/20/16 06:22 Est GFR (Non-Af Amer) > 60 10/20/16 06:22 Random Glucose 87 mg/dL (75-110) 10/20/16 06:22 Calcium 8.9 mg/dl (8.6-10.4) 10/20/16 06:22 Phosphorus 3.5 mg/dL (2.5-4.5) 10/20/16 06:22 Magnesium 1.9 mg/dL (1.6-2.3) 10/20/16 06:22 Total Bilirubin 0.6 mg/dL (0.2-1.3) 10/19/16 00:15 AST 42 U/L (17-59) 10/19/16 00:15 ALT 41 U/L (21-72) 10/19/16 00:15 Alkaline Phosphatase 118 U/L (38-126) 10/19/16 00:15 Troponin I < 0.0120 ng/mL (0.00-0.120) 10/21/16 13:54 NT-Pro-B Natriuret Pep 209 pg/mL (0-900) 10/19/16 00:15 Total Protein 7.1 g/dL (6.3-8.3) 10/19/16 00:15 Albumin 4.0 g/dL (3.5-5.0) 10/19/16 00:15 Globulin 3.1 gm/dL (2.2-3.9) 10/19/16 00:15 Albumin/Globulin Ratio 1.3 (1.0-2.1) 10/19/16 00:15 Free T4 0.42 ng/dL (0.78-2.19) L 10/20/16 06:22 TSH 3rd Generation 4.81 mIU/L (0.46-4.68) H 10/20/16 06:22 Urine Color Yellow (YELLOW) 10/19/16 00:05 Urine Clarity Clear (Clear) 10/19/16 00:05 Urine pH 6.0 (5.0-8.0) 10/19/16 00:05 Ur Specific [place] 1.014 (1.003-1.030) 10/19/16 00:05 Urine Protein Negative mg/dL (NEGATIVE) 10/19/16 00:05 Urine Glucose (UA) Normal mg/dL (Normal) 10/19/16 00:05 Urine Ketones Negative mg/dL (NEGATIVE) 10/19/16 00:05 Urine Blood Negative (NEGATIVE) 10/19/16 00:05 Urine Nitrate Negative (NEGATIVE) 10/19/16 00:05 Urine Bilirubin Negative (NEGATIVE) 10/19/16 00:05 Urine Urobilinogen Normal mg/dL (0.2-1.0) 10/19/16 00:05 Ur Leukocyte Esterase Neg Irma/uL (Negative) 10/19/16 00:05 Urine WBC (Auto) < 1 /hpf (0-5) 10/19/16 00:05 Urine RBC (Auto) 1 /hpf (0-3) 10/19/16 00:05 Attending/Attestation - Attestation I have personally seen and examined this patient.: Yes I have fully participated in the care of the patient.: Yes I have reviewed all pertinent clinical information, including history, physical exam and plan: Yes Notes (Text): SVT follow up with cards re possible ablation
[2016-10-21 16:03] VITALS: BP 129/75; TEMP 97.9
--- NOTE | 2016-10-22 01:25 | PN ---
DATE: 10/21/2016 SUBJECTIVE: The patient . No reported SVT. PHYSICAL EXAMINATION: VITAL SIGNS: Blood pressure 129/75, heart rate 68, temperature 97.9, respirations 20. HEENT: Normocephalic. CHEST: Clear. HEART: S1 and S2 regular. ABDOMEN: Soft. EXTREMITIES: No edema. LABORATORY DATA: Total of four troponins are negative. ASSESSMENT: 1. Paroxysmal reentrant supraventricular tachycardia. 2. Hypertension. 3. Hypothyroidism. RECOMMENDATIONS: Continue current Synthroid, which was increased to 75 mcg once a day. Case was discussed with Dr. Mehta. The patient will see Dr. Mehta as an outpatient to be scheduled for EP study with possible ablation. Joe Harrell MD
--- NOTE | 2016-10-22 11:49 | VASCLAB ---
PROCEDURE: HISTORY: New onset Arrhythmia COMPARISON: None available. TECHNIQUE: Grayscale and duplex Doppler evaluation of the cervical carotid and vertebral arteries were performed. The common carotid, carotid bifurcations and cervical Internal Carotid Artery (ICA) and proximal External Carotid Artery (ECA) were evaluated. The vertebral arteries were evaluated for gross patency and flow direction. Report prepared by Andres Grande, BS, RVT FINDINGS: RIGHT CAROTID ARTERIES: 1. Common Carotid Artery: No significant focal plaque formation of the right common carotid artery. Maximum Peak Systolic velocity: 91 cm/sec: End-diastolic velocity 17 cm/sec. 2. Carotid Bifurcation: Heterogeneous plaque formation. Maximum Peak Systolic velocity: 78 cm/sec: End-diastolic velocity 17 cm/sec. 3. Internal Carotid Artery: Minimal plaque formation of the right proximal ICA which does not result in hemodynamically significant stenosis. Plaque description: Heterogeneous 3.1. Proximal Segment: Peak systolic velocity 95 cm/sec: End-diastolic velocity 18 cm/sec - % stenosis 0-15% 3.2. Middle Segment: Peak systolic velocity 68 cm/sec: End-diastolic velocity 11 cm/sec - % stenosis 0-15% 3.3. Distal Segment: Peak systolic velocity 71 cm/sec: End-diastolic velocity 17 cm/sec - % stenosis 0-15% 4. External Carotid Artery: No significant focal plaque formation. Peak systolic velocity 90 cm/sec 5. ICA/CCA Ratio: 1.0 LEFT CAROTID ARTERIES: 1. Common Carotid Artery: No significant focal plaque formation of the left common carotid artery. Maximum Peak Systolic velocity: 60 cm/sec: End-diastolic velocity 14 cm/sec. 2. Carotid Bifurcation: plaque formation. Maximum Peak Systolic velocity: 67 cm/sec: End-diastolic velocity 13 cm/sec. 3. Internal Carotid Artery: Plaque description: 3.1. Proximal Segment: Peak systolic velocity 60 cm/sec: End-diastolic velocity 15 cm/sec - % stenosis 0-15% 3.2. Middle Segment: Peak systolic velocity 98 cm/sec: End-diastolic velocity 30 cm/sec - % stenosis 0-15% 3.3. Distal Segment: Peak systolic velocity 49 cm/sec: End-diastolic velocity 12 cm/sec - % stenosis 0-15% 4. External Carotid Artery: No significant focal plaque formation. Peak systolic velocity 79 cm/sec 5. ICA/CCA Ratio: 1.6 VERTEBRAL ARTERIES: 1. Right Vertebral Artery: The right vertebral artery flow direction is antegrade. 2. Left Vertebral Artery: The left vertebral artery flow direction is antegrade. OTHER FINDINGS: 1. Right Brachial Blood pressure: 164 mmHg. 2. Left Brachial Blood pressure: 160 mmHg. IMPRESSION: RIGHT: Duplex scan does not suggest hemodynamically significant stenosis of the right extracranial carotid arteries. LEFT: Duplex scan does not suggest hemodynamically significant stenosis of the left extracranial carotid arteries.
--- NOTE | 2016-10-22 18:09 | CARD ---
APPROVED REPORT EKG Measurement Heart [id number] <Conclusion> Supraventricular tachycardia Left axis deviation Incomplete right bundle branch block Nonspecific ST abnormality Abnormal ECG
--- NOTE | 2016-10-29 14:28 | CARD ---
APPROVED REPORT EKG Measurement Heart [id number] <Conclusion> Sinus bradycardia Otherwise normal ECG
== END 2016-10-21 16:21 | disposition home or self-care (01) | DRG 310 ==
LOC: C.ER 23:54 → C.6T 10-19 01:33 → C.9E 10-19 03:37 → C.5T 10-19 04:53
PROVIDERS: ADMIT Internal Medicine; ATTEND Internal Medicine
DX: I47.1 Supraventricular tachycardia (principal); J44.9 Chronic obstructive pulmonary disease, unspecified; I48.91 Unspecified atrial fibrillation; I10 Essential (primary) hypertension; E03.9 Hypothyroidism, unspecified; E05.90 Thyrotoxicosis, unspecified without thyrotoxic crisis or storm; G50.0 Trigeminal neuralgia; J45.909 Unspecified asthma, uncomplicated; Z87.891 Personal history of nicotine dependence; R00.1 Bradycardia, unspecified

== ENCOUNTER 2016-12-05 11:22 | Inpatient (IN) | payer MEDICARE, OTHER ==
[2016-12-05 11:36] VITALS: BMI 25.0
[2016-12-05] MEDS ORDERED: Sodium Chloride 0.9% 1,000 ML IV ONE (12:18)
--- NOTE | 2016-12-05 12:21 | C.PDOC ---
History Of Present Illness 76 year old male with PMH of HTN and hypothyroidism comes in complaining of constipation for 4 days. Patient notes trying to drink prune juice yesterday, but felt nauseous and vomited. Patient reports vomiting any time he eats or drinks and now feels weak and "uncomfortable". He reports dry mouth and unable to urinate today. Denies abdominal pain, fever, chills, or any other associated complaints. Patient admits flatulence. Admits to having constipations before. Time Seen by Provider: 12/05/16 12:02 Chief Complaint (Nursing): GI Problem History Per: Patient History/Exam Limitations: no limitations Onset/Duration Of Symptoms: Days (4) Current Symptoms Are (Timing): Still Present Severity: Mild Associated Symptoms: Nausea, Vomiting Recent travel outside of the [place]: No Additional History Per: Patient Past Medical History Reviewed: Historical Data, Nursing Documentation, Vital Signs Vital Signs: Last Vital Signs Temp 97.6 F 12/05/16 11:36 Pulse 56 L 12/05/16 15:59 Resp 18 12/05/16 15:59 BP 173/70 H 12/05/16 15:59 Pulse Ox 99 12/05/16 17:49 - Medical History PMH: Asthma, COPD, HTN, Hypothyroidism Surgical History: No Surg Hx Family History: States: Unknown Family Hx - Social History Hx Alcohol Use: No Hx Substance Use: No - Immunization History Hx Tetanus Toxoid Vaccination: Yes Hx Influenza Vaccination: Yes Hx Pneumococcal Vaccination: Yes Review Of Systems Constitutional: Negative for: Fever, Chills Cardiovascular: Negative for: Chest Pain, Palpitations Respiratory: Negative for: Cough, Shortness of Breath Gastrointestinal: Positive for: Nausea, Vomiting, Constipation. Negative for: Abdominal Pain Neurological: Negative for: Weakness, Numbness, Headache, Dizziness Physical Exam - Physical Exam Appears: Non-toxic, No Acute Distress, Other (dehydrated) Skin: Warm, Dry Head: Atraumatic, Normacephalic Eye(s): bilateral: Normal Inspection, EOMI Nose: Normal Oral Mucosa: Dry Lips: Other (Dry) Neck: Normal ROM, Supple Chest: Symmetrical Cardiovascular: Rhythm Regular, No Murmur Respiratory: Normal Breath Sounds, No Rales, No Rhonchi, No Wheezing Gastrointestinal/Abdominal: Soft, No Tenderness, No Distention, No Rebound Extremity: Bilateral: Atraumatic, No Pedal Edema, Normal Color And Temperature, Normal ROM Neurological/Psych: Oriented x3, Normal Speech Gait: Steady ED Course And Treatment - Laboratory Results Result Diagrams: 12/05/16 13:20 12/05/16 16:37 Lab Interpretation: Abnormal ECG: Interpreted By Me, Viewed By Me ECG Rhythm: Sinus Bradycardia, 1st Degree HB ECG Interpretation: No Acute Changes Rate From EC O2 Sat by Pulse Oximetry: 99 (RA) Pulse Ox Interpretation: Normal Medical Decision Making Medical Decision Making: Impression: abdominal pain, nausea, constipation Plan: * Labs * IV NS * Obstructive series * 1743 Progress: Xray shows no evidence acute mechanical bowel obstruction. 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 1445 Lab calls with critical value Sodium [address] Cross who added additional labs and recommends 500mL bolus and repeat Na 1615 will repeat NA 1730 Na is 121 Patient is still nauseous and vomited once more in ED. Reglan IV ordered [address] Sung and discussed case, recommends ICU consult [address] Heaton [address] Sung accepted patient to her service, no ICU Disposition - Disposition Disposition: HOSPITALIZED Disposition Time: 17:44 Condition: STABLE - POA Present On Arrival: None - Clinical Impression Clinical Impression: Hyponatremia, Dehydration - Scribe Statement The provider has reviewed the documentation as recorded by the Scribe Aleks osei All medical record entries made by the Scribe were at my direction and personally dictated by me. I have reviewed the chart and agree that the record accurately reflects my personal performance of the history, physical exam, medical decision making, and the department course for this patient. I have also personally directed, reviewed, and agree with the discharge instructions and disposition. Decision To Admit - Pt Status Changed To: Hospital Disposition Of: Inpatient - Admit Certification Admit to Inpatient:: After my assessment, the patient will require hospitalization for at least two midnights. This is because of the severity of symptoms shown, intensity of services needed, and/or the medical risk in this patient being treated as an outpatient. - InPatient: Physician Admission Certification:: Patient with vomiting and is hyponatremic. Will need IV fluids and monitoring for any possible cardiac arrhythmia - . Bed Request Type: Telemetry Admitting Physician: Sarahi Sung Patient Diagnosis: Hyponatremia, Dehydration
[2016-12-05] MEDS ORDERED: Sodium Chloride 0.9% 1,000 ML ONE ×2 (12:43→19:28)
[2016-12-05 13:26] LABS: BASO # 0.1 K/uL (0.0-0.2); BASO % 0.9 % (0.0-2.0); EOS # 0.3 K/uL (0.0-0.7); HEMATOCRIT 36.8 % (35.0-51.0); LYMPH # 0.9 K/uL (1.0-4.3); LYMPH % 13.2 % (20.0-40.0); MEAN CELL VOLUME 91.7 fL (80.0-94.0); MEAN CORPUSCULAR HEMOGLOBIN 31.3 pg (27.0-31.0); MEAN CORPUSCULAR HGB CONC 34.1 g/dL (33.0-37.0); MEAN PLATELET VOLUME 8.6 fL (7.2-11.7); MONO # 0.5 K/uL (0.0-0.8); MONO % 6.7 % (0.0-10.0); RED CELL DISTRIBUTION WIDTH 13.7 % (11.5-14.5)
[2016-12-05 14:24] LABS: CHLORIDE 86 mmol/L (98-107)
[2016-12-05 14:25] LABS: POTASSIUM 4.7 mmol/L (3.6-5.2)
[2016-12-05 14:26] LABS: GFR AFRICAN-AMERICAN > 60
[2016-12-05 14:27] LABS: ALB/GLOB RATIO 1.2 (1.0-2.1); ALKALINE PHOSPHATASE 61 U/L (38-126); ALT/SGPT 34 U/L (21-72); AST/SGOT 25 U/L (17-59); BILIRUBIN,TOTAL 0.4 mg/dL (0.2-1.3); BLOOD UREA NITROGEN 9 mg/dL (9-20); CALCIUM 8.3 mg/dl (8.6-10.4); CARBON DIOXIDE 23 mmol/L (22-30); GLUCOSE,RANDOM 102 mg/dL (75-110); TOTAL PROTEIN 6.5 g/dL (6.3-8.3)
[2016-12-05 14:39] LABS: SODIUM 119 mmol/L (132-148)
[2016-12-05] MEDS ORDERED: Sodium Chloride 0.9% 500 ML IV ONE ×2 (14:54→15:13)
--- NOTE | 2016-12-05 15:02 | RAD ---
PROCEDURE: Radiographs of the chest and abdomen (obstructive series) and HISTORY: abd pain, constipation COMPARISON: Comparison made with chest radiograph 10/19/2016 TECHNIQUE: AP radiograph of the chest, with upright and supine radiographs of the abdomen. FINDINGS: CHEST: No acute infiltrates or effusions. The no evidence of pneumothorax. Minor degenerative changes shoulder girdles. ABDOMEN AND PELVIS: No evidence of free intraperitoneal air seen under the diaphragmatic surfaces. Nonobstructive/nonspecific bowel gas pattern Multilevel degenerative spondylosis of the lumbar and thoracic spine. Moderate dextroscoliosis centered at the L1-L2 level degenerative arthritis both hip joints IMPRESSION: No acute cardiopulmonary disease. No evidence acute mechanical bowel obstruction. 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
[2016-12-05 15:12] LABS: RBC URINE < 1 /hpf (0-3); URINE BACTERIA RARE (<OCC); URINE BILIRUBIN NEGATIVE (NEGATIVE); URINE BLOOD NEGATIVE (NEGATIVE); URINE COLOR Yellow (YELLOW); URINE GLUCOSE (UA) NORMAL (Normal); URINE KETONE NEGATIVE (NEGATIVE); URINE LEUKOCYTE ESTERASE NEG Leu/uL (Negative); URINE PROTEIN NEGATIVE (NEGATIVE); URINE UROBILINOGEN NORMAL mg/dL (0.2-1.0); WBC URINE < 1 /hpf (0-5)
[2016-12-05] MEDS ORDERED: Naloxone 0.4 mg/ml Inj (Adult) ONE (16:19)
[2016-12-05 17:07] LABS: CHLORIDE 86 mmol/L (98-107)
[2016-12-05 17:08] LABS: POTASSIUM 5.3 mmol/L (3.6-5.2); SODIUM 121 mmol/L (132-148)
[2016-12-05 17:10] LABS: GFR AFRICAN-AMERICAN > 60
[2016-12-05 17:11] LABS: BLOOD UREA NITROGEN 9 mg/dL (9-20); CALCIUM 8.4 mg/dl (8.6-10.4); CARBON DIOXIDE 22 mmol/L (22-30); GLUCOSE,RANDOM 86 mg/dL (75-110)
[2016-12-05] MEDS ORDERED: Sodium Chloride 0.9% 1,000 ML IV SCH (19:15)
[2016-12-05] MEDS: Sodium Chloride 0.9% 1,000 ML IV SCH (19:32)
[2016-12-05 20:24] LABS: CHLORIDE 86 mmol/L (98-107); POTASSIUM 4.9 mmol/L (3.6-5.2); SODIUM 121 mmol/L (132-148)
[2016-12-05 20:27] LABS: BLOOD UREA NITROGEN 8 mg/dL (9-20); CARBON DIOXIDE 24 mmol/L (22-30); GFR AFRICAN-AMERICAN > 60; GLUCOSE,RANDOM 84 mg/dL (75-110)
[2016-12-05 20:28] LABS: CALCIUM 8.6 mg/dl (8.6-10.4)
--- NOTE | 2016-12-05 20:30 | CP.PCM.HP ---
<Sarahi Sung V - Last Filed: 12/05/16 22:13> Meds Allergies/Adverse Reactions: Allergies Allergy/AdvReac Type Severity Reaction Status Date / Time bee pollen Allergy Verified 12/05/16 11:35 grass pollen Allergy Verified 12/05/16 11:35 pollen extracts Allergy ITCHING Verified 12/05/16 11:35 Results - Vital Signs Recent Vital Signs: Last Vital Signs Temp 97.6 F 12/05/16 20:38 Pulse 60 12/05/16 20:38 Resp 18 12/05/16 20:38 BP 160/78 H 12/05/16 20:38 Pulse Ox 99 12/05/16 20:38 - Labs Result Diagrams: 12/05/16 13:20 12/05/16 20:14 Labs: Laboratory Results - last 24 hr 12/05/16 12/05/16 12/05/16 13:20 13:20 14:08 WBC 7.0 RBC 4.01 L Hgb 12.5 Hct 36.8 MCV 91.7 MCH 31.3 H MCHC 34.1 RDW 13.7 Plt Count 211 MPV 8.6 Neut % (Auto) 75.2 H Lymph % (Auto) 13.2 L Elbert % (Auto) 6.7 Eos % (Auto) 4.0 Baso % (Auto) 0.9 Neut # 5.3 Lymph # 0.9 L Elbert # 0.5 Eos # 0.3 Baso # 0.1 Sodium Cancelled 119 L* Potassium Cancelled 4.7 Chloride Cancelled 86 L Carbon Dioxide Cancelled 23 Anion Gap Cancelled 15 BUN Cancelled 9 Creatinine Cancelled 0.7 L Est GFR ( Amer) Cancelled > 60 Est GFR (Non-Af Amer) Cancelled > 60 Random Glucose Cancelled 102 Serum Osmolality Calcium Cancelled 8.3 L Total Bilirubin Cancelled 0.4 AST Cancelled 25 ALT Cancelled 34 Alkaline Phosphatase Cancelled 61 Total Protein Cancelled 6.5 Albumin Cancelled 3.6 Globulin Cancelled 2.9 Albumin/Globulin Ratio Cancelled 1.2 Lipase Cancelled 40 TSH 3rd Generation Urine Color Urine Clarity Urine pH Ur Specific Chelsea Urine Protein Urine Glucose (UA) Urine Ketones Urine Blood Urine Nitrate Urine Bilirubin Urine Urobilinogen Ur Leukocyte Esterase Urine WBC (Auto) Urine RBC (Auto) Urine Bacteria Urine Osmolality Ur Random Sodium Ur Random Potassium 12/05/16 12/05/16 12/05/16 14:59 14:59 16:37 WBC RBC Hgb Hct MCV MCH MCHC RDW Plt Count MPV Neut % (Auto) Lymph % (Auto) Elbert % (Auto) Eos % (Auto) Baso % (Auto) Neut # Lymph # Elbert # Eos # Baso # Sodium 121 L Potassium 5.3 H Chloride 86 L Carbon Dioxide 22 Anion Gap 18 BUN 9 Creatinine 0.7 L Est GFR ( Amer) > 60 Est GFR (Non-Af Amer) > 60 Random Glucose 86 Serum Osmolality Calcium 8.4 L Total Bilirubin AST ALT Alkaline Phosphatase Total Protein Albumin Globulin Albumin/Globulin Ratio Lipase TSH 3rd Generation Urine Color Yellow Urine Clarity Clear Urine pH 6.0 Ur Specific Chelsea 1.013 Urine Protein Negative Urine Glucose (UA) Normal Urine Ketones Negative Urine Blood Negative Urine Nitrate Negative Urine Bilirubin Negative Urine Urobilinogen Normal Ur Leukocyte Esterase Neg Urine WBC (Auto) < 1 Urine RBC (Auto) < 1 Urine Bacteria Rare Urine Osmolality 446 Ur Random Sodium 99 Ur Random Potassium 45.6 12/05/16 12/05/16 12/05/16 17:49 20:14 20:14 WBC RBC Hgb Hct MCV MCH MCHC RDW Plt Count MPV Neut % (Auto) Lymph % (Auto) Elbert % (Auto) Eos % (Auto) Baso % (Auto) Neut # Lymph # Elbert # Eos # Baso # Sodium 121 L Potassium 4.9 Chloride 86 L Carbon Dioxide 24 Anion Gap 16 BUN 8 L Creatinine 0.7 L Est GFR ( Amer) > 60 Est GFR (Non-Af Amer) > 60 Random Glucose 84 Serum Osmolality 257 L Calcium 8.6 Total Bilirubin AST ALT Alkaline Phosphatase Total Protein Albumin Globulin Albumin/Globulin Ratio Lipase TSH 3rd Generation 1.37 Urine Color Urine Clarity Urine pH Ur Specific Chelsea Urine Protein Urine Glucose (UA) Urine Ketones Urine Blood Urine Nitrate Urine Bilirubin Urine Urobilinogen Ur Leukocyte Esterase Urine WBC (Auto) Urine RBC (Auto) Urine Bacteria Urine Osmolality Ur Random Sodium Ur Random Potassium 12/05/16 21:01 WBC RBC Hgb Hct MCV MCH MCHC RDW Plt Count MPV Neut % (Auto) Lymph % (Auto) Elbert % (Auto) Eos % (Auto) Baso % (Auto) Neut # Lymph # Elbert # Eos # Baso # Sodium Potassium Chloride Carbon Dioxide Anion Gap BUN Creatinine Est GFR ( Amer) Est GFR (Non-Af Amer) Random Glucose Serum Osmolality Calcium Total Bilirubin AST ALT Alkaline Phosphatase Total Protein Albumin Globulin Albumin/Globulin Ratio Lipase TSH 3rd Generation Urine Color Urine Clarity Urine pH Ur Specific Chelsea Urine Protein Urine Glucose (UA) Urine Ketones Urine Blood Urine Nitrate Urine Bilirubin Urine Urobilinogen Ur Leukocyte Esterase Urine WBC (Auto) Urine RBC (Auto) Urine Bacteria Urine Osmolality 280 L Ur Random Sodium 85 Ur Random Potassium Attending/Attestation - Attestation I have personally seen and examined this patient.: Yes I have fully participated in the care of the patient.: Yes I have reviewed all pertinent clinical information: Yes Notes (Text): Patient seen, examined and case discussed with day-time resident. Patient seen in [facility] Bed 2 in the Emergency Room. Patient is clinically dry. Unable to tolerate food/drink for the past 3 days. Patient reports had tried prune juice because he felt constipated. Since patient 's was discharged in October, he reports he maintains low salt diet. Patient reports he takes his medications day. Patient has felt weaker. He tried to day food concoction with papaya but he threw it up today. His son a former doctor advised him to come to the emergency room today. Discussed with ICU, patient is stable for the floors. Discussed with nephrology, recommendations as stated below. GI consult given unable to tolerate PO intakes which will contribute to hyponatremia. Assessment/Plan 1) Hypovolumeic Hyponatremia * Admit to telemetry * Nephrology (Dr. Acosta) on board-->help appreciated * Patient appears clinically dry, skin tenting, pruning of the hands, and dry mucous membranes. patient reports mild nausea this morning and vomitted once after he tried a food concoction derived by his son. Patient reports he has been unable to tolerate liquids or solids for the past three days. Patient reports he had not urinated for about 15 hours. Patient had received 1 Liter Fluid Bolus and 500 CC bolus, and sodium had improved from 119 to 121. Patient urinated after administrated fluid bolus. * Discussed with ICU, patient is neurologically intact, clinically dry, and mild nausea safe for the telemetry. * Discussed with nephrology, started on NS 75cc/hr. BMPQ 4 with urine osmolarity and urine sodium. * Serum osmolarity was not collected on admission and lab could not add to prior lab work. * 2:00PM: Na 119, urine osmolality 446, urine sodium: 99 * Hypotonic Hyponatremia Hypovolumeic-->high urine sodium-->renal loss * Insert vivas; to monitor I and O * Neurochecks Q4H * Possible medication side effect: Patient is on Carbamazepine SE: hyponatremia 2) Dysphagia to Liquids and Solids * GI (Dr. Red) for consult-->f/u recommendations * New onset X3 days-- tries to eat but gets nauseous, has not thrown up prior to today * Patient reports history of gerd, where he takes omeprazole. Patient is not a smoker * Accuechecks QAC and HS * Hypoglycemic Protocol * Start soft diet to see if patient tolerates it 3) History of Asthma * Patient is not in acute exacerbation * Albuterol HFA 1 puff INH RQ 6H * Singulair 10mg PO daily * Fluticasone Propionate 2 puff INH BID 4) Constipation * Patient reports he feels constipation and has had last bowel movement on Thursday * 12/05/16 Obstructive Series: no acute cardiopulmonary disease, no evidence acute mechanical bowel obstruction. 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 Sung Patient is a 76 year old male with a past medical history of HTN, hypothyroidism and GERD presenting with nausea, vomiting and dysphagia. The patient states that he started getting nauseous 4 to 5 days ago. He reports that 2 days ago he starting vomiting everything that he ate. He states that he was unable to keep anything down. It did not matter if it was solid or liquid, anything that he swallowed came right back up. Patient describes vomit as undigested food, denies any blood or coffee ground appearance. Patient admits to decreased appetite. He states that he has not had a bowel movement since thursday or thursday, which is not normal for him. Patient denies any pain but states that he feels overall weak. Denies f/c, sob, abd pain, cp, cough, vision changes, headaches, numbness, tingling, syncope, lightheadedness, dizziness. PMD: Dr. Jasso PMH: HTN, Hypothyroidism, GERD PSH: none Social: Denies tobacco, alcohol and/or illicit drug use Family: unknown Allergy: pollen, NKDA Present on Admission - Present on Admission Any Indicators Present on Admission: No Review of Systems - Constitutional Constitutional: absent: Chills, Fever, Headache, Increased Appetite (decreased appetite) - EENT Eyes: absent: Change in Vision - Cardiovascular Cardiovascular: absent: Chest Pain, Palpitations - Respiratory Respiratory: absent: Cough, Dyspnea - Gastrointestinal Gastrointestinal: Constipation (has not pooped in 3 days), Nausea, Vomiting ( denies blood). absent: Coffee Ground Emesis, Diarrhea - Musculoskeletal Musculoskeletal: absent: Numbness, Tingling - Integumentary Integumentary: absent: Swelling, Jaundice - Neurological Neurological: absent: Disequilibrium, Dizziness, Numbness, Syncope, Tingling, Vertigo, Weakness - Psychiatric Psychiatric: Change in Appetite (decreased). absent: Depression - Endocrine Endocrine: Fatigue. absent: Palpitations Past Patient History - Infectious Disease Hx of Infectious Diseases: None - Past Medical History & Family History Past Medical History?: Yes - Past Social History Smoking Status: Never Smoked - CARDIAC Hx Hypertension: Yes - PULMONARY Hx Asthma: Yes Hx Chronic Obstructive Pulmonary Disease (COPD): Yes - NEUROLOGICAL Hx Neurological Disorder: No - HEENT Hx HEENT Problems: No - RENAL Hx Chronic Kidney Disease: No - ENDOCRINE/METABOLIC Hx Hypothyroidism: Yes - HEMATOLOGICAL/ONCOLOGICAL Hx Blood Disorders: No - INTEGUMENTARY Hx Dermatological Problems: No - MUSCULOSKELETAL/RHEUMATOLOGICAL Hx Falls: No - GASTROINTESTINAL Hx Gastrointestinal Disorders: Yes - GENITOURINARY/GYNECOLOGICAL Hx Genitourinary Disorders: No - PSYCHIATRIC Hx Substance Use: No - SURGICAL HISTORY Hx Surgeries: No - ANESTHESIA Hx Anesthesia: No Hx Anesthesia Reactions: No Hx Malignant Hyperthermia: No Physical Exam - Constitutional Appears: Non-toxic, No Acute Distress, Other (tired ) - Head Exam Head Exam: ATRAUMATIC, NORMOCEPHALIC - Eye Exam Eye Exam: EOMI, Normal appearance - ENT Exam ENT Exam: Mucous Membranes Dry - Respiratory Exam Respiratory Exam: Clear to Auscultation Bilateral, NORMAL BREATHING PATTERN. absent: Accessory Muscle Use, Rales, Rhonchi, Wheezes, Respiratory Distress - Cardiovascular Exam Cardiovascular Exam: REGULAR RHYTHM, +S1, +S2 - GI/Abdominal Exam GI & Abdominal Exam: Distended, Hypoactive Bowel Sounds, Soft. absent: Firm, Guarding, Hernia, Tenderness - Extremities Exam Extremities exam: Positive for: normal inspection, pedal pulses present. Negative for: calf tenderness, pedal edema, tenderness - Back Exam Back exam: NORMAL INSPECTION, tenderness. absent: CVA tenderness (L), CVA tenderness (R), paraspinal tenderness, vertebral tenderness - Neurological Exam Neurological exam: Alert, CN II-XII Intact, Normal Gait, Oriented x3 - Psychiatric Exam Additional comments: Patient is very tired. Continuously closing his eyes throughout exam. - Skin Skin Exam: Dry, Intact, Normal Color, Warm Additional comments: Skin tenting. dry lips sucked inward. patient appears very dry. Results - Vital Signs Recent Vital Signs: Last Vital Signs Temp 97.6 F 12/05/16 11:36 Pulse 74 12/05/16 19:06 Resp 20 12/05/16 19:06 BP 184/74 H 12/05/16 19:06 Pulse Ox 100 12/05/16 19:06 - Labs Result Diagrams: 12/05/16 13:20 12/06/16 01:46 Labs: Laboratory Results - last 24 hr 12/05/16 12/05/16 12/05/16 13:20 13:20 14:08 WBC 7.0 RBC 4.01 L Hgb 12.5 Hct 36.8 MCV 91.7 MCH 31.3 H MCHC 34.1 RDW 13.7 Plt Count 211 MPV 8.6 Neut % (Auto) 75.2 H Lymph % (Auto) 13.2 L Elbert % (Auto) 6.7 Eos % (Auto) 4.0 Baso % (Auto) 0.9 Neut # 5.3 Lymph # 0.9 L Elbert # 0.5 Eos # 0.3 Baso # 0.1 Sodium Cancelled 119 L* Potassium Cancelled 4.7 Chloride Cancelled 86 L Carbon Dioxide Cancelled 23 Anion Gap Cancelled 15 BUN Cancelled 9 Creatinine Cancelled 0.7 L Est GFR ( Amer) Cancelled > 60 Est GFR (Non-Af Amer) Cancelled > 60 Random Glucose Cancelled 102 Serum Osmolality Calcium Cancelled 8.3 L Total Bilirubin Cancelled 0.4 AST Cancelled 25 ALT Cancelled 34 Alkaline Phosphatase Cancelled 61 Total Protein Cancelled 6.5 Albumin Cancelled 3.6 Globulin Cancelled 2.9 Albumin/Globulin Ratio Cancelled 1.2 Lipase Cancelled 40 TSH 3rd Generation Urine Color Urine Clarity Urine pH Ur Specific Chelsea Urine Protein Urine Glucose (UA) Urine Ketones Urine Blood Urine Nitrate Urine Bilirubin Urine Urobilinogen Ur Leukocyte Esterase Urine WBC (Auto) Urine RBC (Auto) Urine Bacteria Urine Osmolality Ur Random Sodium Ur Random Potassium 12/05/16 12/05/16 12/05/16 14:59 14:59 16:37 WBC RBC Hgb Hct MCV MCH MCHC RDW Plt Count MPV Neut % (Auto) Lymph % (Auto) Elbert % (Auto) Eos % (Auto) Baso % (Auto) Neut # Lymph # Elbert # Eos # Baso # Sodium 121 L Potassium 5.3 H Chloride 86 L Carbon Dioxide 22 Anion Gap 18 BUN 9 Creatinine 0.7 L Est GFR ( Amer) > 60 Est GFR (Non-Af Amer) > 60 Random Glucose 86 Serum Osmolality Calcium 8.4 L Total Bilirubin AST ALT Alkaline Phosphatase Total Protein Albumin Globulin Albumin/Globulin Ratio Lipase TSH 3rd Generation Urine Color Yellow Urine Clarity Clear Urine pH 6.0 Ur Specific Chelsea 1.013 Urine Protein Negative Urine Glucose (UA) Normal Urine Ketones Negative Urine Blood Negative Urine Nitrate Negative Urine Bilirubin Negative Urine Urobilinogen Normal Ur Leukocyte Esterase Neg Urine WBC (Auto) < 1 Urine RBC (Auto) < 1 Urine Bacteria Rare Urine Osmolality 446 Ur Random Sodium 99 Ur Random Potassium 45.6 12/05/16 12/05/16 12/05/16 17:49 20:14 20:14 WBC RBC Hgb Hct MCV MCH MCHC RDW Plt Count MPV Neut % (Auto) Lymph % (Auto) Elbert % (Auto) Eos % (Auto) Baso % (Auto) Neut # Lymph # Elbert # Eos # Baso # Sodium 121 L Potassium 4.9 Chloride 86 L Carbon Dioxide Anion Gap BUN Creatinine Est GFR ( Amer) Est GFR (Non-Af Amer) Random Glucose Serum Osmolality 257 L Calcium Total Bilirubin AST ALT Alkaline Phosphatase Total Protein Albumin Globulin Albumin/Globulin Ratio Lipase TSH 3rd Generation 1.37 Urine Color Urine Clarity Urine pH Ur Specific Chelsea Urine Protein Urine Glucose (UA) Urine Ketones Urine Blood Urine Nitrate Urine Bilirubin Urine Urobilinogen Ur Leukocyte Esterase Urine WBC (Auto) Urine RBC (Auto) Urine Bacteria Urine Osmolality Ur Random Sodium Ur Random Potassium Assessment & Plan - Assessment and Plan (Free Text) Assessment: Hyponatremia Nephrology consulted, Dr. Acosta - help appreciated Na on admission 119, given 2L bolus in ED --> Na 121 in 2 hours. must monitor Na , do not increase greater than 6-8 mmol/L in first 24 hours BMP Q4 serum osmol 257 urine osmol 466 urine Na 99 TSH 1.37 f/u free T4 Vivas cath placed Strict I's + O's NS @75 mL/hr Dysphagia GI consulted, Dr. Red Soft diet, as tolerated Hypothyroidism TSH 1.37 f/u free T4 Continue home synthroid 75 mcg PO daily HTN Restarted on home Losartan 25 mg PO daily Note from 10/21/16 states patient used to be taking Hydralizine for HTN as well, but medication is not listed. Patient does not think he has a history of HTN. GERD Pepcid 20 mg PO BID Trigeminal Neuralgia Oxcarbazepine 300mg PO BID - restarted, but on previous admission on 10/19, there was confusion about this medication. Neurologist Dr. Alejandra Taveras was attempted to be reached but no phone call was ever returned to confirm this medication. Patient states his pharmacy is [facility] in [place]. Please confirm medication. Hx of Asthma Restarted home medications, Ventolin, Singulair, Fluticansone
[2016-12-05] MEDS ORDERED: Albuterol HFA 90 mcg/actuation (8 g) INH PRN (21:59)
[2016-12-06] MEDS ORDERED: POLYETHYLENE GLYCOL 3350 17 GM/Dose PACKET PO ONE ×3 (01:40→09:15)
[2016-12-06 01:55] LABS: CHLORIDE 88 mmol/L (98-107); POTASSIUM 4.2 mmol/L (3.6-5.2); SODIUM 122 mmol/L (132-148)
[2016-12-06 01:58] LABS: BLOOD UREA NITROGEN 8 mg/dL (9-20); CARBON DIOXIDE 23 mmol/L (22-30); GFR AFRICAN-AMERICAN > 60
[2016-12-06 01:59] LABS: CALCIUM 8.4 mg/dl (8.6-10.4); GLUCOSE,RANDOM 84 mg/dL (75-110)
[2016-12-06 05:32] LABS: CHLORIDE 89 mmol/L (98-107); POTASSIUM 4.4 mmol/L (3.6-5.2); SODIUM 123 mmol/L (132-148)
[2016-12-06 05:35] LABS: BLOOD UREA NITROGEN 8 mg/dL (9-20); CALCIUM 8.8 mg/dl (8.6-10.4); CARBON DIOXIDE 26 mmol/L (22-30); GFR AFRICAN-AMERICAN > 60; GLUCOSE,RANDOM 89 mg/dL (75-110)
[2016-12-06] MEDS: Levothyroxine 75 MCG TAB PO SCH (06:35)
[2016-12-06] MEDS: Sodium Chloride 0.9% 1,000 ML IV SCH ×2 (08:24→14:30)
[2016-12-06] MEDS: Vitamin B Complex/Vitamin C Tab PO SCH (09:15)
[2016-12-06] MEDS ORDERED: Bisacodyl 5mg EC Tab PO ONE ×3 (09:15→11:55)
[2016-12-06 09:22] LABS: CHLORIDE URINE 105 mmol/L (32-290)
[2016-12-06 11:36] LABS: CHLORIDE 90 mmol/L (98-107); POTASSIUM 4.5 mmol/L (3.6-5.2); SODIUM 125 mmol/L (132-148)
[2016-12-06 11:39] LABS: BLOOD UREA NITROGEN 8 mg/dL (9-20); CARBON DIOXIDE 24 mmol/L (22-30); GFR AFRICAN-AMERICAN > 60; GLUCOSE,RANDOM 71 mg/dL (75-110)
[2016-12-06 11:40] LABS: CALCIUM 8.4 mg/dl (8.6-10.4)
[2016-12-06] MEDS: POLYETHYLENE GLYCOL 3350 17 GM/Dose PACKET PO SCH ×2 (11:56→17:31)
[2016-12-06 12:11] LABS: FREE T4 0.93 ng/dL (0.78-2.19)
--- NOTE | 2016-12-06 14:57 | CP.PCM.CON ---
History of Present Illness - History of Present Illness History of Present Illness: 76 yo M w/ pmh of htn, hypothyroidism and GERD, presented to ED with nausea and inability to hold down PO intake for previous 2 days; admitted for severe hyponatremia, nephrology being consulted for the same; Patient reports being in his usual state of health until just a few days ago; denies actually vomiting but says any time he tries to eat, the food is just regurgitated out; otherwise he had previously been eating well and taking all his meds; reports being constipated since past 4 days; Patient also reports decreased urine output during these past couple of days; otherwise had no other urinary symptoms previously; With regard to taking trileptal, patient has been on it since about 2 years for nerve pain involving L face; says dose was doubled about 6 months ago; PMH: as above; episode of SVT earlier this year; Social Hx: denies smoking Family Hx: denies Review of Systems - Constitutional Constitutional: absent: Anorexia - EENT Eyes: absent: Change in Vision Nose/Mouth/Throat: absent: Dysphagia - Cardiovascular Cardiovascular: absent: Chest Pain, Dyspnea on Exertion - Respiratory Respiratory: absent: Cough, Dyspnea - Gastrointestinal Gastrointestinal: As Per HPI - Genitourinary Genitourinary: As Per HPI - Musculoskeletal Musculoskeletal: absent: Arthralgias, Back Pain - Neurological Neurological: As Per HPI. absent: Numbness Past Patient History - Infectious Disease Hx of Infectious Diseases: None - Past Medical History & Family History Past Medical History?: Yes - Past Social History Smoking Status: Never Smoked - CARDIAC Hx Hypertension: Yes - PULMONARY Hx Asthma: Yes Hx Chronic Obstructive Pulmonary Disease (COPD): Yes - NEUROLOGICAL Hx Neurological Disorder: No - HEENT Hx HEENT Problems: No - RENAL Hx Chronic Kidney Disease: No - ENDOCRINE/METABOLIC Hx Hypothyroidism: Yes - HEMATOLOGICAL/ONCOLOGICAL Hx Blood Disorders: No - INTEGUMENTARY Hx Dermatological Problems: No - MUSCULOSKELETAL/RHEUMATOLOGICAL Hx Falls: No - GASTROINTESTINAL Hx Gastrointestinal Disorders: Yes - GENITOURINARY/GYNECOLOGICAL Hx Genitourinary Disorders: No - PSYCHIATRIC Hx Substance Use: No - SURGICAL HISTORY Hx Surgeries: No - ANESTHESIA Hx Anesthesia: No Hx Anesthesia Reactions: No Hx Malignant Hyperthermia: No Meds Allergies/Adverse Reactions: Allergies Allergy/AdvReac Type Severity Reaction Status Date / Time bee pollen Allergy Verified 12/05/16 11:35 grass pollen Allergy Verified 12/05/16 11:35 pollen extracts Allergy ITCHING Verified 12/05/16 11:35 - Medications Medications: Current Medications Albuterol (Ventolin Hfa 90 Mcg/Actuation (8 G)) 1 puff INH RQ6 PRN PRN Reason: Shortness of Breath Last Admin: 12/06/16 04:39 Dose: 1 puff Famotidine (Pepcid) 20 mg PO BID [facility] Last Admin: 12/06/16 09:15 Dose: 20 mg Heparin Sodium (Porcine) (Heparin) 5,000 units SC Q8 [facility] Last Admin: 12/06/16 14:30 Dose: 5,000 units Sodium Chloride (Sodium Chloride 0.9%) 1,000 mls @ 75 mls/hr IV .[id number] [facility] Last Admin: 12/06/16 14:30 Dose: 75 mls/hr Levothyroxine Sodium (Synthroid) 75 mcg PO DAILY@0630 [facility] Last Admin: 12/06/16 06:35 Dose: 75 mcg Losartan Potassium (Cozaar) 25 mg PO DAILY [facility] Last Admin: 12/06/16 09:15 Dose: 25 mg Mometasone Furoate (Asmanex Twisthaler 110 Mcg) 1 puff INH BID [facility] Montelukast Sodium (Singulair) 10 mg PO HS [facility] Ondansetron HCl (Zofran Inj) 4 mg IVP Q6H PRN PRN Reason: Nausea/Vomiting Oxcarbazepine (Trileptal) 300 mg PO BID [facility] Last Admin: 12/06/16 09:15 Dose: 300 mg Polyethylene Glycol (Miralax) 17 gm PO BID [facility] Last Admin: 12/06/16 11:56 Dose: 17 gm Sennosides (Senokot Tab) 8.6 mg PO DAILY [facility] Last Admin: 12/06/16 11:56 Dose: 8.6 mg Vitamin B Complex/Vitamin C (Berocca) 1 tab PO DAILY [facility] Last Admin: 12/06/16 09:15 Dose: 1 tab Physical Exam - Constitutional Appears: Non-toxic, No Acute Distress - Head Exam Head Exam: NORMAL INSPECTION - Eye Exam Eye Exam: Normal appearance. absent: Scleral icterus - ENT Exam ENT Exam: Mucous Membranes Moist - Neck Exam Neck exam: Positive for: Normal Inspection. Negative for: Lymphadenopathy - Respiratory Exam Respiratory Exam: Clear to Auscultation Bilateral, NORMAL BREATHING PATTERN. absent: Rales, Rhonchi, Wheezes, Respiratory Distress - Cardiovascular Exam Cardiovascular Exam: REGULAR RHYTHM, +S1, +S2 - GI/Abdominal Exam GI & Abdominal Exam: Soft. absent: Distended, Normal Bowel Sounds - Exam Exam: absent: Bladder Distension - Extremities Exam Extremities exam: Positive for: normal capillary refill, normal inspection, pedal pulses present. Negative for: pedal edema - Neurological Exam Neurological exam: Alert, Oriented x3 - Psychiatric Exam Psychiatric exam: Normal Affect, Normal Mood - Skin Skin Exam: Normal Color, Warm Results - Vital Signs Recent Vital Signs: Last Vital Signs Temp 98.2 F 12/06/16 07:00 Pulse 56 L 12/06/16 10:00 Resp 20 12/06/16 07:00 BP 140/75 12/06/16 07:00 Pulse Ox 98 12/06/16 07:00 - Labs Result Diagrams: 12/05/16 13:20 12/06/16 11:18 Labs: Laboratory Results - last 24 hr 12/05/16 12/05/16 12/05/16 14:59 14:59 14:59 Sodium Potassium Chloride Carbon Dioxide Anion Gap BUN Creatinine Est GFR ( Amer) Est GFR (Non-Af Amer) POC Glucose (mg/dL) Random Glucose Serum Osmolality Calcium Free T4 TSH 3rd Generation Urine Color Yellow Urine Clarity Clear Urine pH 6.0 Ur Specific [place] 1.013 Urine Protein Negative Urine Glucose (UA) Normal Urine Ketones Negative Urine Blood Negative Urine Nitrate Negative Urine Bilirubin Negative Urine Urobilinogen Normal Ur Leukocyte Esterase Neg Urine WBC (Auto) < 1 Urine RBC (Auto) < 1 Urine Bacteria Rare Urine Osmolality 446 Ur Random Sodium 99 Ur Random Potassium 45.6 Urine Chloride 105 12/05/16 12/05/16 12/05/16 16:37 17:49 20:14 Sodium 121 L 121 L Potassium 5.3 H 4.9 Chloride 86 L 86 L Carbon Dioxide 22 24 Anion Gap 18 16 BUN 9 8 L Creatinine 0.7 L 0.7 L Est GFR ( Amer) > 60 > 60 Est GFR (Non-Af Amer) > 60 > 60 POC Glucose (mg/dL) Random Glucose 86 84 Serum Osmolality Calcium 8.4 L 8.6 Free T4 TSH 3rd Generation 1.37 Urine Color Urine Clarity Urine pH Ur Specific [place] Urine Protein Urine Glucose (UA) Urine Ketones Urine Blood Urine Nitrate Urine Bilirubin Urine Urobilinogen Ur Leukocyte Esterase Urine WBC (Auto) Urine RBC (Auto) Urine Bacteria Urine Osmolality Ur Random Sodium Ur Random Potassium Urine Chloride 12/05/16 12/05/16 12/06/16 20:14 21:01 01:46 Sodium 122 L Potassium 4.2 Chloride 88 L Carbon Dioxide 23 Anion Gap 15 BUN 8 L Creatinine 0.8 Est GFR ( Amer) > 60 Est GFR (Non-Af Amer) > 60 POC Glucose (mg/dL) Random Glucose 84 Serum Osmolality 257 L Calcium 8.4 L Free T4 TSH 3rd Generation Urine Color Urine Clarity Urine pH Ur Specific [place] Urine Protein Urine Glucose (UA) Urine Ketones Urine Blood Urine Nitrate Urine Bilirubin Urine Urobilinogen Ur Leukocyte Esterase Urine WBC (Auto) Urine RBC (Auto) Urine Bacteria Urine Osmolality 280 L Ur Random Sodium 85 Ur Random Potassium Urine Chloride 12/06/16 12/06/16 12/06/16 05:03 06:41 07:26 Sodium 123 L Potassium 4.4 Chloride 89 L Carbon Dioxide 26 Anion Gap 12 BUN 8 L Creatinine 0.7 L Est GFR ( Amer) > 60 Est GFR (Non-Af Amer) > 60 POC Glucose (mg/dL) 113 H Random Glucose 89 Serum Osmolality Calcium 8.8 Free T4 TSH 3rd Generation Urine Color Urine Clarity Urine pH Ur Specific [place] Urine Protein Urine Glucose (UA) Urine Ketones Urine Blood Urine Nitrate Urine Bilirubin Urine Urobilinogen Ur Leukocyte Esterase Urine WBC (Auto) Urine RBC (Auto) Urine Bacteria Urine Osmolality 205 L Ur Random Sodium 58 Ur Random Potassium Urine Chloride 12/06/16 12/06/16 12/06/16 07:30 11:18 11:18 Sodium 125 L Potassium 4.5 Chloride 90 L Carbon Dioxide 24 Anion Gap 16 BUN 8 L Creatinine 0.7 L Est GFR ( Amer) > 60 Est GFR (Non-Af Amer) > 60 POC Glucose (mg/dL) Random Glucose 71 L Serum Osmolality 265 L Calcium 8.4 L Free T4 0.93 TSH 3rd Generation Urine Color Urine Clarity Urine pH Ur Specific [place] Urine Protein Urine Glucose (UA) Urine Ketones Urine Blood Urine Nitrate Urine Bilirubin Urine Urobilinogen Ur Leukocyte Esterase Urine WBC (Auto) Urine RBC (Auto) Urine Bacteria Urine Osmolality Ur Random Sodium 58 Ur Random Potassium Urine Chloride 12/06/16 11:55 Sodium Potassium Chloride Carbon Dioxide Anion Gap BUN Creatinine Est GFR ( Amer) Est GFR (Non-Af Amer) POC Glucose (mg/dL) 91 Random Glucose Serum Osmolality Calcium Free T4 TSH 3rd Generation Urine Color Urine Clarity Urine pH Ur Specific [place] Urine Protein Urine Glucose (UA) Urine Ketones Urine Blood Urine Nitrate Urine Bilirubin Urine Urobilinogen Ur Leukocyte Esterase Urine WBC (Auto) Urine RBC (Auto) Urine Bacteria Urine Osmolality Ur Random Sodium Ur Random Potassium Urine Chloride Assessment & Plan (1) Hyponatremia Assessment and Plan: Likely due to volume depletion and/or inadequate solute intake, in the setting of decreased PO intake, coupled with hyponatremic effect of trileptal; serum Na improving gradually with with IVF; Ur osm still inappropriately elevated ( normal physiologic response in setting of hyponatremia is to lower Ur osm to under 100) and likely reflects ongoing volume depletion and/or the effect of trileptal; -continue NS at 75 cc/hr; goal increase in serum Na should be no more than 6-8 meq/L over 24 hrs; -continue to monitor bmp and Ur osm every 4 hrs until serum Na ~130 -if Ur osm drops significantly, stop IVF Status: Acute (2) HTN (hypertension) Assessment and Plan: Uncontrolled; on losartan 25 mg daily, continue; Status: Acute (3) Constipation Assessment and Plan: Giving miralax; IVF may may help; Status: Acute (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
--- NOTE | 2016-12-06 15:07 | CP.PCM.CON ---
<DavidVignesh - Last Filed: 12/06/16 15:12> History of Present Illness - History of Present Illness History of Present Illness: PGY4 GI Fellow Consult Note Patient is a 76 year old male with past medical history of hypertension, hypothyroidism and GERD who presented to ED with nausea and inability to hold down PO intake for previous 2 days. Pt states that he has not had a BM in 4-5 days. He states that he feels bloated due to the fact. Pt states that he started to experience abd pain 1 day prior to admission. He states that the pain was generalized and described it as crampy. Pt states that his pain was initially intermittent. Pt denies any aggrevating or alleviating factors. Pt denies trying an OTC stool softners or laxatives. Denies any BRBPR, hematemesis , coffee-ground emesis. He denies any recent weight loss. Pt states that he was so nauseated that he would vomit after any PO intake. He denies any symptoms of dysphagia to liquids or solids PMH: as above; episode of SVT earlier this year; Social Hx: denies smoking Family Hx: denies Endoscopy hx: >10 years ago he states that he had a colonoscopy and EGD, he states that they were normal ROS: 12 Point ROS conducted neg other than above Past Patient History - Infectious Disease Hx of Infectious Diseases: None - Past Medical History & Family History Past Medical History?: Yes - Past Social History Smoking Status: Never Smoked - CARDIAC Hx Hypertension: Yes - PULMONARY Hx Asthma: Yes Hx Chronic Obstructive Pulmonary Disease (COPD): Yes - NEUROLOGICAL Hx Neurological Disorder: No - HEENT Hx HEENT Problems: No - RENAL Hx Chronic Kidney Disease: No - ENDOCRINE/METABOLIC Hx Hypothyroidism: Yes - HEMATOLOGICAL/ONCOLOGICAL Hx Blood Disorders: No - INTEGUMENTARY Hx Dermatological Problems: No - MUSCULOSKELETAL/RHEUMATOLOGICAL Hx Falls: No - GASTROINTESTINAL Hx Gastrointestinal Disorders: Yes - GENITOURINARY/GYNECOLOGICAL Hx Genitourinary Disorders: No - PSYCHIATRIC Hx Substance Use: No - SURGICAL HISTORY Hx Surgeries: No - ANESTHESIA Hx Anesthesia: No Hx Anesthesia Reactions: No Hx Malignant Hyperthermia: No Meds Allergies/Adverse Reactions: Allergies Allergy/AdvReac Type Severity Reaction Status Date / Time bee pollen Allergy Verified 12/05/16 11:35 grass pollen Allergy Verified 12/05/16 11:35 pollen extracts Allergy ITCHING Verified 12/05/16 11:35 - Medications Medications: Current Medications Albuterol (Ventolin Hfa 90 Mcg/Actuation (8 G)) 1 puff INH RQ6 PRN PRN Reason: Shortness of Breath Last Admin: 12/06/16 04:39 Dose: 1 puff Famotidine (Pepcid) 20 mg PO BID [facility] Last Admin: 12/06/16 09:15 Dose: 20 mg Heparin Sodium (Porcine) (Heparin) 5,000 units SC Q8 [facility] Last Admin: 12/06/16 14:30 Dose: 5,000 units Sodium Chloride (Sodium Chloride 0.9%) 1,000 mls @ 75 mls/hr IV .[id number] [facility] Last Admin: 12/06/16 14:30 Dose: 75 mls/hr Levothyroxine Sodium (Synthroid) 75 mcg PO DAILY@0630 [facility] Last Admin: 12/06/16 06:35 Dose: 75 mcg Losartan Potassium (Cozaar) 25 mg PO DAILY [facility] Last Admin: 12/06/16 09:15 Dose: 25 mg Mometasone Furoate (Asmanex Twisthaler 110 Mcg) 1 puff INH BID [facility] Montelukast Sodium (Singulair) 10 mg PO HS [facility] Ondansetron HCl (Zofran Inj) 4 mg IVP Q6H PRN PRN Reason: Nausea/Vomiting Oxcarbazepine (Trileptal) 300 mg PO BID [facility] Last Admin: 12/06/16 09:15 Dose: 300 mg Polyethylene Glycol (Miralax) 17 gm PO BID [facility] Last Admin: 12/06/16 11:56 Dose: 17 gm Sennosides (Senokot Tab) 8.6 mg PO DAILY [facility] Last Admin: 12/06/16 11:56 Dose: 8.6 mg Vitamin B Complex/Vitamin C (Berocca) 1 tab PO DAILY [facility] Last Admin: 12/06/16 09:15 Dose: 1 tab Physical Exam - Constitutional Appears: Well, No Acute Distress - Head Exam Head Exam: ATRAUMATIC, NORMOCEPHALIC - Eye Exam Eye Exam: Normal appearance - ENT Exam ENT Exam: Mucous Membranes Moist - Neck Exam Neck exam: Positive for: Normal Inspection - Respiratory Exam Respiratory Exam: Clear to Auscultation Bilateral, NORMAL BREATHING PATTERN. absent: Rales, Rhonchi, Wheezes, Respiratory Distress - Cardiovascular Exam Cardiovascular Exam: REGULAR RHYTHM, +S1 - GI/Abdominal Exam GI & Abdominal Exam: Distended, Hypoactive Bowel Sounds. absent: Firm, Guarding , Normal Bowel Sounds, Organomegaly, Rigid, Tenderness - Extremities Exam Extremities exam: Negative for: joint swelling, pedal edema - Neurological Exam Neurological exam: Alert, Oriented x3 - Psychiatric Exam Psychiatric exam: Normal Affect, Normal Mood - Skin Skin Exam: Dry, Intact, Normal Color, Warm Results - Vital Signs Recent Vital Signs: Last Vital Signs Temp 98.2 F 12/06/16 07:00 Pulse 56 L 12/06/16 10:00 Resp 20 12/06/16 07:00 BP 140/75 12/06/16 07:00 Pulse Ox 98 12/06/16 07:00 - Labs Result Diagrams: 12/05/16 13:20 12/06/16 11:18 Labs: Laboratory Results - last 24 hr 12/05/16 12/05/16 12/05/16 14:59 14:59 14:59 Sodium Potassium Chloride Carbon Dioxide Anion Gap BUN Creatinine Est GFR ( Amer) Est GFR (Non-Af Amer) POC Glucose (mg/dL) Random Glucose Serum Osmolality Calcium Free T4 TSH 3rd Generation Urine Color Yellow Urine Clarity Clear Urine pH 6.0 Ur Specific [place] 1.013 Urine Protein Negative Urine Glucose (UA) Normal Urine Ketones Negative Urine Blood Negative Urine Nitrate Negative Urine Bilirubin Negative Urine Urobilinogen Normal Ur Leukocyte Esterase Neg Urine WBC (Auto) < 1 Urine RBC (Auto) < 1 Urine Bacteria Rare Urine Osmolality 446 Ur Random Sodium 99 Ur Random Potassium 45.6 Urine Chloride 105 12/05/16 12/05/16 12/05/16 16:37 17:49 20:14 Sodium 121 L 121 L Potassium 5.3 H 4.9 Chloride 86 L 86 L Carbon Dioxide 22 24 Anion Gap 18 16 BUN 9 8 L Creatinine 0.7 L 0.7 L Est GFR ( Amer) > 60 > 60 Est GFR (Non-Af Amer) > 60 > 60 POC Glucose (mg/dL) Random Glucose 86 84 Serum Osmolality Calcium 8.4 L 8.6 Free T4 TSH 3rd Generation 1.37 Urine Color Urine Clarity Urine pH Ur Specific [place] Urine Protein Urine Glucose (UA) Urine Ketones Urine Blood Urine Nitrate Urine Bilirubin Urine Urobilinogen Ur Leukocyte Esterase Urine WBC (Auto) Urine RBC (Auto) Urine Bacteria Urine Osmolality Ur Random Sodium Ur Random Potassium Urine Chloride 12/05/16 12/05/16 12/06/16 20:14 21:01 01:46 Sodium 122 L Potassium 4.2 Chloride 88 L Carbon Dioxide 23 Anion Gap 15 BUN 8 L Creatinine 0.8 Est GFR ( Amer) > 60 Est GFR (Non-Af Amer) > 60 POC Glucose (mg/dL) Random Glucose 84 Serum Osmolality 257 L Calcium 8.4 L Free T4 TSH 3rd Generation Urine Color Urine Clarity Urine pH Ur Specific [place] Urine Protein Urine Glucose (UA) Urine Ketones Urine Blood Urine Nitrate Urine Bilirubin Urine Urobilinogen Ur Leukocyte Esterase Urine WBC (Auto) Urine RBC (Auto) Urine Bacteria Urine Osmolality 280 L Ur Random Sodium 85 Ur Random Potassium Urine Chloride 12/06/16 12/06/16 12/06/16 05:03 06:41 07:26 Sodium 123 L Potassium 4.4 Chloride 89 L Carbon Dioxide 26 Anion Gap 12 BUN 8 L Creatinine 0.7 L Est GFR ( Amer) > 60 Est GFR (Non-Af Amer) > 60 POC Glucose (mg/dL) 113 H Random Glucose 89 Serum Osmolality Calcium 8.8 Free T4 TSH 3rd Generation Urine Color Urine Clarity Urine pH Ur Specific [place] Urine Protein Urine Glucose (UA) Urine Ketones Urine Blood Urine Nitrate Urine Bilirubin Urine Urobilinogen Ur Leukocyte Esterase Urine WBC (Auto) Urine RBC (Auto) Urine Bacteria Urine Osmolality 205 L Ur Random Sodium 58 Ur Random Potassium Urine Chloride 12/06/16 12/06/16 12/06/16 07:30 11:18 11:18 Sodium 125 L Potassium 4.5 Chloride 90 L Carbon Dioxide 24 Anion Gap 16 BUN 8 L Creatinine 0.7 L Est GFR ( Amer) > 60 Est GFR (Non-Af Amer) > 60 POC Glucose (mg/dL) Random Glucose 71 L Serum Osmolality 265 L Calcium 8.4 L Free T4 0.93 TSH 3rd Generation Urine Color Urine Clarity Urine pH Ur Specific [place] Urine Protein Urine Glucose (UA) Urine Ketones Urine Blood Urine Nitrate Urine Bilirubin Urine Urobilinogen Ur Leukocyte Esterase Urine WBC (Auto) Urine RBC (Auto) Urine Bacteria Urine Osmolality Ur Random Sodium 58 Ur Random Potassium Urine Chloride 12/06/16 11:55 Sodium Potassium Chloride Carbon Dioxide Anion Gap BUN Creatinine Est GFR ( Amer) Est GFR (Non-Af Amer) POC Glucose (mg/dL) 91 Random Glucose Serum Osmolality Calcium Free T4 TSH 3rd Generation Urine Color Urine Clarity Urine pH Ur Specific [place] Urine Protein Urine Glucose (UA) Urine Ketones Urine Blood Urine Nitrate Urine Bilirubin Urine Urobilinogen Ur Leukocyte Esterase Urine WBC (Auto) Urine RBC (Auto) Urine Bacteria Urine Osmolality Ur Random Sodium Ur Random Potassium Urine Chloride Assessment & Plan - Assessment and Plan (Free Text) Assessment: Ra Christianson is a 76M w/ hx of chronic constipation and seizure disorder who presented with abd pain, nausea, and vomiting. Etiology is likely 2/2 constipation. 1. Constipation 2. Nausea vomiting 2/2 above 3. hyponatremia Plan: -start miralax daily, senna, and docusate -can add lactulose PRN if still constipated -pt had a BM this morning and states he had some releif -advance diet as tolerated -colonscopy as oupt -avoid narcotics -no signs of true dysphagia -d/w Dr. Carbone will sign off, please reconsult if needed <Tona WRIGHT,[facility] - Last Filed: 12/06/16 18:29> Meds - Medications Medications: Current Medications Albuterol (Ventolin Hfa 90 Mcg/Actuation (8 G)) 1 puff INH RQ6 PRN PRN Reason: Shortness of Breath Last Admin: 12/06/16 04:39 Dose: 1 puff Famotidine (Pepcid) 20 mg PO BID [facility] Last Admin: 12/06/16 17:31 Dose: 20 mg Heparin Sodium (Porcine) (Heparin) 5,000 units SC Q8 [facility] Last Admin: 12/06/16 14:30 Dose: 5,000 units Sodium Chloride (Sodium Chloride 0.9%) 1,000 mls @ 75 mls/hr IV .[id number] [facility] Last Admin: 12/06/16 14:30 Dose: 75 mls/hr Levothyroxine Sodium (Synthroid) 75 mcg PO DAILY@0630 [facility] Last Admin: 12/06/16 06:35 Dose: 75 mcg Losartan Potassium (Cozaar) 25 mg PO DAILY [facility] Last Admin: 12/06/16 09:15 Dose: 25 mg Mometasone Furoate (Asmanex Twisthaler 110 Mcg) 1 puff INH BID [facility] Last Admin: 12/06/16 17:47 Dose: 1 puff Montelukast Sodium (Singulair) 10 mg PO HS [facility] Ondansetron HCl (Zofran Inj) 4 mg IVP Q6H PRN PRN Reason: Nausea/Vomiting Oxcarbazepine (Trileptal) 300 mg PO BID [facility] Last Admin: 12/06/16 17:31 Dose: 300 mg Polyethylene Glycol (Miralax) 17 gm PO BID [facility] Last Admin: 12/06/16 17:31 Dose: 17 gm Sennosides (Senokot Tab) 8.6 mg PO DAILY [facility] Last Admin: 12/06/16 11:56 Dose: 8.6 mg Vitamin B Complex/Vitamin C (Berocca) 1 tab PO DAILY [facility] Last Admin: 12/06/16 09:15 Dose: 1 tab Results - Vital Signs Recent Vital Signs: Last Vital Signs Temp 98.3 F 12/06/16 16:00 Pulse 60 12/06/16 16:00 Resp 18 12/06/16 16:00 BP 153/70 H 12/06/16 16:00 Pulse Ox 99 12/06/16 16:00 - Labs Result Diagrams: 12/05/16 13:20 12/06/16 11:18 Labs: Laboratory Results - last 24 hr 12/05/16 12/05/16 12/05/16 14:59 17:49 20:14 Sodium 121 L Potassium 4.9 Chloride 86 L Carbon Dioxide 24 Anion Gap 16 BUN 8 L Creatinine 0.7 L Est GFR ( Amer) > 60 Est GFR (Non-Af Amer) > 60 POC Glucose (mg/dL) Random Glucose 84 Serum Osmolality Calcium 8.6 Free T4 TSH 3rd Generation 1.37 Urine Osmolality Ur Random Sodium Urine Chloride 105 12/05/16 12/05/16 12/06/16 20:14 21:01 01:46 Sodium 122 L Potassium 4.2 Chloride 88 L Carbon Dioxide 23 Anion Gap 15 BUN 8 L Creatinine 0.8 Est GFR ( Amer) > 60 Est GFR (Non-Af Amer) > 60 POC Glucose (mg/dL) Random Glucose 84 Serum Osmolality 257 L Calcium 8.4 L Free T4 TSH 3rd Generation Urine Osmolality 280 L Ur Random Sodium 85 Urine Chloride 12/06/16 12/06/16 12/06/16 05:03 06:41 07:26 Sodium 123 L Potassium 4.4 Chloride 89 L Carbon Dioxide 26 Anion Gap 12 BUN 8 L Creatinine 0.7 L Est GFR ( Amer) > 60 Est GFR (Non-Af Amer) > 60 POC Glucose (mg/dL) 113 H Random Glucose 89 Serum Osmolality Calcium 8.8 Free T4 TSH 3rd Generation Urine Osmolality 205 L Ur Random Sodium 58 Urine Chloride 12/06/16 12/06/16 12/06/16 07:30 11:18 11:18 Sodium 125 L Potassium 4.5 Chloride 90 L Carbon Dioxide 24 Anion Gap 16 BUN 8 L Creatinine 0.7 L Est GFR ( Amer) > 60 Est GFR (Non-Af Amer) > 60 POC Glucose (mg/dL) Random Glucose 71 L Serum Osmolality 265 L Calcium 8.4 L Free T4 0.93 TSH 3rd Generation Urine Osmolality Ur Random Sodium 58 Urine Chloride 12/06/16 12/06/16 11:55 16:55 Sodium Potassium Chloride Carbon Dioxide Anion Gap BUN Creatinine Est GFR ( Amer) Est GFR (Non-Af Amer) POC Glucose (mg/dL) 91 97 Random Glucose Serum Osmolality Calcium Free T4 TSH 3rd Generation Urine Osmolality Ur Random Sodium Urine Chloride Attending/Attestation - Attestation I have personally seen and examined this patient.: Yes I have fully participated in the care of the patient.: Yes I have reviewed all pertinent clinical information: Yes Notes (Text): 12/06/16 18:27 This is a 76 yr old M with history of chronic constipation and seizure disorder who presented with abdominal pain, nausea, and vomiting likely due to chronic constipation. Will start miralax daily, senna, and docusate. Can add lactulose PRN if still constipated. Currently no GI symptoms. Also found to have hyponatremia. Check TSH levels. Advance diet as tolerated. No signs of true dysphagia. Will sign off, please reconsult if needed
[2016-12-06] MEDS: Mometasone 110 mcg/puff-30 puff Inh INH SCH (17:47)
[2016-12-07] MEDS: Levothyroxine 75 MCG TAB PO SCH (06:08)
[2016-12-07] MEDS: Sodium Chloride 0.9% 1,000 ML IV SCH ×2 (06:12→12:00)
[2016-12-07] MEDS: POLYETHYLENE GLYCOL 3350 17 GM/Dose PACKET PO SCH ×2 (09:33→17:40)
[2016-12-07] MEDS: Vitamin B Complex/Vitamin C Tab PO SCH (09:33)
[2016-12-07] MEDS: Mometasone 110 mcg/puff-30 puff Inh INH SCH ×2 (09:34→17:40)
[2016-12-07 10:47] LABS: CHLORIDE 91 mmol/L (98-107); POTASSIUM 4.4 mmol/L (3.6-5.2); SODIUM 129 mmol/L (132-148)
[2016-12-07 10:49] LABS: AST/SGOT 21 U/L (17-59); BILIRUBIN,TOTAL 0.4 mg/dL (0.2-1.3); CARBON DIOXIDE 25 mmol/L (22-30); GFR AFRICAN-AMERICAN > 60
[2016-12-07 10:50] LABS: ALB/GLOB RATIO 1.3 (1.0-2.1); ALKALINE PHOSPHATASE 65 U/L (38-126); ALT/SGPT 31 U/L (21-72); BLOOD UREA NITROGEN 9 mg/dL (9-20); CALCIUM 8.3 mg/dl (8.6-10.4); GLUCOSE,RANDOM 81 mg/dL (75-110); TOTAL PROTEIN 6.6 g/dL (6.3-8.3)
--- NOTE | 2016-12-07 14:02 | CP.PCM.PN ---
<Abhay Hadley - Last Filed: 12/07/16 14:07> Subjective - Date & Time of Evaluation Date of Evaluation: 01/05/17 Time of Evaluation: 08:00 - Subjective Subjective: Patient seen and examined at bedside; tolerating PO now; denies any symptoms; denies fevers/chills, PENN, CP, SOB, abdominal pain, N/V/D, dysuria/freq/urg, or lower extremity pain/swelling. Objective - Vital Signs/Intake and Output Vital Signs (last 24 hours): Temp Pulse Resp BP Pulse Ox 97.7 F 58 L 20 170/80 H 97 12/07/16 00:10 12/07/16 08:11 12/07/16 00:10 12/07/16 04:00 12/07/16 00:10 Intake and Output: 12/07/16 12/07/16 06:59 18:59 Intake Total 1318 Output Total 2850 Balance -1532 - Medications Medications: Current Medications Albuterol (Ventolin Hfa 90 Mcg/Actuation (8 G)) 1 puff INH RQ6 PRN PRN Reason: Shortness of Breath Last Admin: 12/06/16 04:39 Dose: 1 puff Azithromycin (Zithromax) 250 mg PO DAILY [facility] Stop: 12/12/16 10:01 Famotidine (Pepcid) 20 mg PO BID [facility] Last Admin: 12/07/16 09:33 Dose: 20 mg Heparin Sodium (Porcine) (Heparin) 5,000 units SC Q8 [facility] Last Admin: 12/07/16 06:08 Dose: 5,000 units Sodium Chloride (Sodium Chloride 0.9%) 1,000 mls @ 75 mls/hr IV .[id number] [facility] Last Admin: 12/07/16 06:12 Dose: 75 mls/hr Levothyroxine Sodium (Synthroid) 75 mcg PO DAILY@0630 [facility] Last Admin: 12/07/16 06:08 Dose: 75 mcg Losartan Potassium (Cozaar) 25 mg PO DAILY [facility] Last Admin: 12/07/16 09:33 Dose: 25 mg Mometasone Furoate (Asmanex Twisthaler 110 Mcg) 1 puff INH BID [facility] Last Admin: 12/07/16 09:34 Dose: 1 puff Montelukast Sodium (Singulair) 10 mg PO HS [facility] Last Admin: 12/06/16 21:24 Dose: 10 mg Ondansetron HCl (Zofran Inj) 4 mg IVP Q6H PRN PRN Reason: Nausea/Vomiting Oxcarbazepine (Trileptal) 300 mg PO BID [facility] Last Admin: 12/07/16 09:33 Dose: 300 mg Polyethylene Glycol (Miralax) 17 gm PO BID [facility] Last Admin: 12/07/16 09:33 Dose: 17 gm Sennosides (Senokot Tab) 8.6 mg PO DAILY [facility] Last Admin: 12/07/16 09:33 Dose: 8.6 mg Vitamin B Complex/Vitamin C (Berocca) 1 tab PO DAILY [facility] Last Admin: 12/07/16 09:33 Dose: 1 tab - Labs Labs: 12/05/16 13:20 12/07/16 10:30 - Constitutional Appears: Well, Non-toxic - Head Exam Head Exam: ATRAUMATIC - Eye Exam Eye Exam: EOMI - ENT Exam ENT Exam: Mucous Membranes Moist - Neck Exam Neck Exam: Full ROM. absent: Lymphadenopathy - Respiratory Exam Respiratory Exam: Clear to Ausculation Bilateral, NORMAL BREATHING PATTERN. absent: Rales, Rhonchi, Wheezes - Cardiovascular Exam Cardiovascular Exam: REGULAR RHYTHM - GI/Abdominal Exam GI & Abdominal Exam: Soft, Normal Bowel Sounds - Extremities Exam Extremities Exam: Full ROM. absent: Calf Tenderness - Back Exam Back Exam: absent: CVA tenderness (L), CVA tenderness (R) - Neurological Exam Neurological Exam: Alert, Awake, Oriented x3 - Psychiatric Exam Psychiatric exam: Normal Affect, Normal Mood - Skin Skin Exam: Warm Assessment and Plan - Assessment and Plan (Free Text) Assessment: 1) Hypovolumeic Hyponatremia; resolving * Nephrology (Dr. Acosta) on board-->help appreciated * Discussed with nephrology, started on NS 75cc/hr. BMPQ 4 with urine osmolarity and urine sodium; sodium resolving * Serum osmolarity was not collected on admission and lab could not add to prior lab work. * vivas removed * Possible medication side effect: Patient is on Carbamazepine SE: hyponatremia 2) Dysphagia to Liquids and Solids; resolved * GI (Dr. Red) for consult-->f/u recommendations; resolved * patient is now tolerating diet 3) History of Asthma; asymptomatic * Patient is not in acute exacerbation * Albuterol HFA 1 puff INH RQ 6H * Singulair 10mg PO daily * Fluticasone Propionate 2 puff INH BID 4) Constipation; resolved * Patient reports he feels constipation and has had last bowel movement on Thursday * patient is having regular bowel movements in hospital 5) History of Hypertension * Cozaar 25mg PO daily * monitor blood pressure vital signs 6) Prophylactic Care * Heparin 5000 units subq 8 H * Pepcid 20mg PO bid * Fall risk * PT/OT eval Case discussed and seen with Dr. Chichi Hadley PGY2 note for Dr. Cadet <García Cadet - Last Filed: 12/07/16 14:30> Objective - Vital Signs/Intake and Output Vital Signs (last 24 hours): Temp Pulse Resp BP Pulse Ox 97.7 F 58 L 20 170/80 H 97 12/07/16 00:10 12/07/16 08:11 12/07/16 00:10 12/07/16 04:00 12/07/16 00:10 Intake and Output: 12/07/16 12/07/16 06:59 18:59 Intake Total 1318 Output Total 2850 Balance -1532 - Medications Medications: Current Medications Albuterol (Ventolin Hfa 90 Mcg/Actuation (8 G)) 1 puff INH RQ6 PRN PRN Reason: Shortness of Breath Last Admin: 12/06/16 04:39 Dose: 1 puff Azithromycin (Zithromax) 250 mg PO DAILY [facility] Stop: 12/12/16 10:01 Famotidine (Pepcid) 20 mg PO BID [facility] Last Admin: 12/07/16 09:33 Dose: 20 mg Heparin Sodium (Porcine) (Heparin) 5,000 units SC Q8 [facility] Last Admin: 12/07/16 14:20 Dose: 5,000 units Sodium Chloride (Sodium Chloride 0.9%) 1,000 mls @ 75 mls/hr IV .[id number] [facility] Last Admin: 12/07/16 12:00 Dose: Not Given Levothyroxine Sodium (Synthroid) 75 mcg PO DAILY@0630 [facility] Last Admin: 12/07/16 06:08 Dose: 75 mcg Losartan Potassium (Cozaar) 25 mg PO DAILY [facility] Last Admin: 12/07/16 09:33 Dose: 25 mg Mometasone Furoate (Asmanex Twisthaler 110 Mcg) 1 puff INH BID [facility] Last Admin: 12/07/16 09:34 Dose: 1 puff Montelukast Sodium (Singulair) 10 mg PO HS [facility] Last Admin: 12/06/16 21:24 Dose: 10 mg Ondansetron HCl (Zofran Inj) 4 mg IVP Q6H PRN PRN Reason: Nausea/Vomiting Oxcarbazepine (Trileptal) 300 mg PO BID [facility] Last Admin: 12/07/16 09:33 Dose: 300 mg Polyethylene Glycol (Miralax) 17 gm PO BID [facility] Last Admin: 12/07/16 09:33 Dose: 17 gm Sennosides (Senokot Tab) 8.6 mg PO DAILY [facility] Last Admin: 12/07/16 09:33 Dose: 8.6 mg Vitamin B Complex/Vitamin C (Berocca) 1 tab PO DAILY [facility] Last Admin: 12/07/16 09:33 Dose: 1 tab - Labs Labs: 12/05/16 13:20 12/07/16 10:30 Attending/Attestation - Attestation I have personally seen and examined this patient.: Yes I have fully participated in the care of the patient.: Yes I have reviewed all pertinent clinical information, including history, physical exam and plan: Yes Notes (Text): Hyponatremia likey medication induced improving
--- NOTE | 2016-12-07 14:10 | CP.PCM.PN ---
<Abhay Hadley - Last Filed: 12/07/16 14:08> Subjective - Date & Time of Evaluation Date of Evaluation: 12/07/16 Time of Evaluation: 14:08 - Subjective Subjective: Patient seen and examined at bedside; improving; no complaints, tolerating diet well and going to the bathroom well. Objective - Vital Signs/Intake and Output Vital Signs (last 24 hours): Temp Pulse Resp BP Pulse Ox 97.7 F 58 L 20 170/80 H 97 12/07/16 00:10 12/07/16 08:11 12/07/16 00:10 12/07/16 04:00 12/07/16 00:10 Intake and Output: 12/07/16 12/07/16 06:59 18:59 Intake Total 1318 Output Total 2850 Balance -1532 - Medications Medications: Current Medications Albuterol (Ventolin Hfa 90 Mcg/Actuation (8 G)) 1 puff INH RQ6 PRN PRN Reason: Shortness of Breath Last Admin: 12/06/16 04:39 Dose: 1 puff Azithromycin (Zithromax) 250 mg PO DAILY [facility] Stop: 12/12/16 10:01 Famotidine (Pepcid) 20 mg PO BID [facility] Last Admin: 12/07/16 09:33 Dose: 20 mg Heparin Sodium (Porcine) (Heparin) 5,000 units SC Q8 [facility] Last Admin: 12/07/16 06:08 Dose: 5,000 units Sodium Chloride (Sodium Chloride 0.9%) 1,000 mls @ 75 mls/hr IV .[id number] [facility] Last Admin: 12/07/16 06:12 Dose: 75 mls/hr Levothyroxine Sodium (Synthroid) 75 mcg PO DAILY@0630 [facility] Last Admin: 12/07/16 06:08 Dose: 75 mcg Losartan Potassium (Cozaar) 25 mg PO DAILY [facility] Last Admin: 12/07/16 09:33 Dose: 25 mg Mometasone Furoate (Asmanex Twisthaler 110 Mcg) 1 puff INH BID [facility] Last Admin: 12/07/16 09:34 Dose: 1 puff Montelukast Sodium (Singulair) 10 mg PO HS [facility] Last Admin: 12/06/16 21:24 Dose: 10 mg Ondansetron HCl (Zofran Inj) 4 mg IVP Q6H PRN PRN Reason: Nausea/Vomiting Oxcarbazepine (Trileptal) 300 mg PO BID [facility] Last Admin: 12/07/16 09:33 Dose: 300 mg Polyethylene Glycol (Miralax) 17 gm PO BID [facility] Last Admin: 12/07/16 09:33 Dose: 17 gm Sennosides (Senokot Tab) 8.6 mg PO DAILY [facility] Last Admin: 12/07/16 09:33 Dose: 8.6 mg Vitamin B Complex/Vitamin C (Berocca) 1 tab PO DAILY [facility] Last Admin: 12/07/16 09:33 Dose: 1 tab - Labs Labs: 12/05/16 13:20 12/07/16 10:30 - Constitutional Appears: Non-toxic - Head Exam Head Exam: ATRAUMATIC - Eye Exam Eye Exam: EOMI - ENT Exam ENT Exam: Mucous Membranes Moist - Neck Exam Neck Exam: Full ROM. absent: Lymphadenopathy - Respiratory Exam Respiratory Exam: Clear to Ausculation Bilateral, NORMAL BREATHING PATTERN. absent: Rales, Rhonchi, Wheezes - Cardiovascular Exam Cardiovascular Exam: REGULAR RHYTHM, +S1 - GI/Abdominal Exam GI & Abdominal Exam: Soft, Normal Bowel Sounds - Rectal Exam Rectal Exam: Deferred - Extremities Exam Extremities Exam: Full ROM. absent: Calf Tenderness - Back Exam Back Exam: NORMAL INSPECTION. absent: CVA tenderness (L), CVA tenderness (R) - Neurological Exam Neurological Exam: Alert, Awake, Oriented x3 - Psychiatric Exam Psychiatric exam: Normal Affect - Skin Skin Exam: Warm Assessment and Plan - Assessment and Plan (Free Text) Assessment: 1) Hypovolumeic Hyponatremia; resolving * Nephrology (Dr. Acosta) on board-->help appreciated * Discussed with nephrology, started on NS 75cc/hr. CMP in the morning * Serum osmolarity was not collected on admission and lab could not add to prior lab work. * vivas removed * Possible medication side effect: Patient is on Carbamazepine SE: hyponatremia 2) Dysphagia to Liquids and Solids; resolved * GI (Dr. Red) for consult-->f/u recommendations; resolved * patient is now tolerating diet 3) History of Asthma; asymptomatic * Patient is not in acute exacerbation * Albuterol HFA 1 puff INH RQ 6H * Singulair 10mg PO daily * Fluticasone Propionate 2 puff INH BID 4) Constipation; resolved * Patient reports he feels constipation and has had last bowel movement on Thursday * patient is having regular bowel movements in hospital 5) History of Hypertension * Cozaar 25mg PO daily * monitor blood pressure vital signs 6) Prophylactic Care * Heparin 5000 units subq 8 H * Pepcid 20mg PO bid * Fall risk * PT/OT eval Case discussed and seen with Dr. Chichi Hadley PGY2 note for Dr. Cadet <García Cadet - Last Filed: 12/07/16 14:31> Objective - Vital Signs/Intake and Output Vital Signs (last 24 hours): Temp Pulse Resp BP Pulse Ox 97.7 F 58 L 20 170/80 H 97 12/07/16 00:10 12/07/16 08:11 12/07/16 00:10 12/07/16 04:00 12/07/16 00:10 Intake and Output: 12/07/16 12/07/16 06:59 18:59 Intake Total 1318 Output Total 2850 Balance -1532 - Medications Medications: Current Medications Albuterol (Ventolin Hfa 90 Mcg/Actuation (8 G)) 1 puff INH RQ6 PRN PRN Reason: Shortness of Breath Last Admin: 12/06/16 04:39 Dose: 1 puff Azithromycin (Zithromax) 250 mg PO DAILY [facility] Stop: 12/12/16 10:01 Famotidine (Pepcid) 20 mg PO BID [facility] Last Admin: 12/07/16 09:33 Dose: 20 mg Heparin Sodium (Porcine) (Heparin) 5,000 units SC Q8 [facility] Last Admin: 12/07/16 14:20 Dose: 5,000 units Sodium Chloride (Sodium Chloride 0.9%) 1,000 mls @ 75 mls/hr IV .[id number] [facility] Last Admin: 12/07/16 12:00 Dose: Not Given Levothyroxine Sodium (Synthroid) 75 mcg PO DAILY@0630 [facility] Last Admin: 12/07/16 06:08 Dose: 75 mcg Losartan Potassium (Cozaar) 25 mg PO DAILY [facility] Last Admin: 12/07/16 09:33 Dose: 25 mg Mometasone Furoate (Asmanex Twisthaler 110 Mcg) 1 puff INH BID [facility] Last Admin: 12/07/16 09:34 Dose: 1 puff Montelukast Sodium (Singulair) 10 mg PO HS [facility] Last Admin: 12/06/16 21:24 Dose: 10 mg Ondansetron HCl (Zofran Inj) 4 mg IVP Q6H PRN PRN Reason: Nausea/Vomiting Oxcarbazepine (Trileptal) 300 mg PO BID [facility] Last Admin: 12/07/16 09:33 Dose: 300 mg Polyethylene Glycol (Miralax) 17 gm PO BID [facility] Last Admin: 12/07/16 09:33 Dose: 17 gm Sennosides (Senokot Tab) 8.6 mg PO DAILY [facility] Last Admin: 12/07/16 09:33 Dose: 8.6 mg Vitamin B Complex/Vitamin C (Berocca) 1 tab PO DAILY [facility] Last Admin: 12/07/16 09:33 Dose: 1 tab - Labs Labs: 12/05/16 13:20 12/07/16 10:30 Attending/Attestation - Attestation I have personally seen and examined this patient.: Yes I have fully participated in the care of the patient.: Yes I have reviewed all pertinent clinical information, including history, physical exam and plan: Yes Notes (Text): Acute bronchitis lungs clear Hyponatremia due to meds likely improving last admission was in 130s
[2016-12-08] MEDS: Sodium Chloride 0.9% 1,000 ML IV SCH ×2 (01:14→05:44)
[2016-12-08] MEDS: Levothyroxine 75 MCG TAB PO SCH (05:39)
[2016-12-08 07:17] LABS: ALB/GLOB RATIO 1.3 (1.0-2.1); GLUCOSE,RANDOM 78 mg/dL (75-110); TOTAL PROTEIN 6.1 g/dL (6.3-8.3)
[2016-12-08 07:19] LABS: ALKALINE PHOSPHATASE 61 U/L (38-126); ALT/SGPT 30 U/L (21-72); AST/SGOT 27 U/L (17-59); BILIRUBIN,TOTAL 0.4 mg/dL (0.2-1.3); BLOOD UREA NITROGEN 9 mg/dL (9-20); CALCIUM 8.9 mg/dl (8.6-10.4); CARBON DIOXIDE 25 mmol/L (22-30); CHLORIDE 92 mmol/L (98-107); GFR AFRICAN-AMERICAN > 60; POTASSIUM 4.1 mmol/L (3.6-5.2); SODIUM 125 mmol/L (132-148)
[2016-12-08] MEDS: Vitamin B Complex/Vitamin C Tab PO SCH (09:33)
[2016-12-08] MEDS: POLYETHYLENE GLYCOL 3350 17 GM/Dose PACKET PO SCH ×2 (09:34→18:09)
--- NOTE | 2016-12-08 18:00 | CP.PCM.PN ---
<Torito Ahn - Last Filed: 12/09/16 05:37> Subjective - Date & Time of Evaluation Date of Evaluation: 12/08/16 Time of Evaluation: 09:00 - Subjective Subjective: PGY1 Medicine Note for Dr. Beaulieu Patient seen and examined at bedside this morning. Patient states that he is doing alright but still feels like he is a little fatigued. He states he has been able to eat but has not had a BM since thursday. He states that he has had the urge to go the bathroom but was unable to when he sat down on the toilet. This is normal for him as he normally only poops once every 2 to 3 days. Denies f/c, n/v/d, sob, cp, abd pain or headaches. Objective - Vital Signs/Intake and Output Vital Signs (last 24 hours): Temp Pulse Resp BP Pulse Ox 97.5 F L 53 L 20 173/84 H 99 12/08/16 07:00 12/08/16 10:00 12/08/16 07:00 12/08/16 07:00 12/08/16 07:00 Intake and Output: 12/08/16 12/08/16 06:59 18:59 Intake Total 600 480 Output Total 1000 4050 Balance -400 -3570 - Medications Medications: Current Medications Albuterol (Ventolin Hfa 90 Mcg/Actuation (8 G)) 1 puff INH RQ6 PRN PRN Reason: Shortness of Breath Last Admin: 12/06/16 04:39 Dose: 1 puff Azithromycin (Zithromax) 250 mg PO DAILY [facility] Stop: 12/12/16 10:01 Last Admin: 12/08/16 09:33 Dose: 250 mg Famotidine (Pepcid) 20 mg PO BID [facility] Last Admin: 12/08/16 09:33 Dose: 20 mg Heparin Sodium (Porcine) (Heparin) 5,000 units SC Q8 [facility] Last Admin: 12/08/16 13:35 Dose: 5,000 units Levothyroxine Sodium (Synthroid) 75 mcg PO DAILY@0630 [facility] Last Admin: 12/08/16 05:39 Dose: 75 mcg Losartan Potassium (Cozaar) 25 mg PO DAILY [facility] Last Admin: 12/08/16 09:33 Dose: 25 mg Mometasone Furoate (Asmanex Twisthaler 110 Mcg) 1 puff INH BID [facility] Last Admin: 12/07/16 17:40 Dose: 1 puff Montelukast Sodium (Singulair) 10 mg PO HS [facility] Last Admin: 12/07/16 21:08 Dose: 10 mg Ondansetron HCl (Zofran Inj) 4 mg IVP Q6H PRN PRN Reason: Nausea/Vomiting Oxcarbazepine (Trileptal) 300 mg PO BID [facility] Last Admin: 12/08/16 09:33 Dose: 300 mg Polyethylene Glycol (Miralax) 17 gm PO BID [facility] Last Admin: 12/08/16 09:34 Dose: 17 gm Sennosides (Senokot Tab) 8.6 mg PO DAILY [facility] Last Admin: 12/08/16 09:33 Dose: 8.6 mg Vitamin B Complex/Vitamin C (Berocca) 1 tab PO DAILY [facility] Last Admin: 12/08/16 09:33 Dose: 1 tab - Labs Labs: 12/05/16 13:20 12/08/16 06:53 - Constitutional Appears: Non-toxic, No Acute Distress - Head Exam Head Exam: ATRAUMATIC, NORMOCEPHALIC - Eye Exam Eye Exam: EOMI, Normal appearance - ENT Exam ENT Exam: Mucous Membranes Moist - Respiratory Exam Respiratory Exam: Clear to Ausculation Bilateral, NORMAL BREATHING PATTERN. absent: Accessory Muscle Use, Rales, Rhonchi, Wheezes, Respiratory Distress - Cardiovascular Exam Cardiovascular Exam: REGULAR RHYTHM, +S1, +S2 - GI/Abdominal Exam GI & Abdominal Exam: Soft, Normal Bowel Sounds. absent: Distended, Firm, Guarding, Rigid, Tenderness - Extremities Exam Extremities Exam: Normal Inspection. absent: Calf Tenderness, Pedal Edema - Neurological Exam Neurological Exam: Alert, Awake, Oriented x3 - Psychiatric Exam Psychiatric exam: Normal Affect, Normal Mood. absent: Depressed - Skin Skin Exam: Dry, Normal Color, Warm Assessment and Plan - Assessment and Plan (Free Text) Assessment: 1) Hypovolumeic Hyponatremia; resolving * Nephrology (Dr. Acosta) on board-->help appreciated * Discussed with nephrology, started on NS 75cc/hr. CMP in the morning - held due to increased BP * Serum osmolarity was not collected on admission and lab could not add to prior lab work. * vivas removed * Possible medication side effect: Patient is on Carbamazepine SE: hyponatremia * continue to monitor - Na dropped from 129 -> 125 today 2) Dysphagia to Liquids and Solids; resolved * GI (Dr. Red) for consult-->f/u recommendations; resolved * patient is now tolerating diet 3) History of Asthma; asymptomatic * Patient is not in acute exacerbation * Albuterol HFA 1 puff INH RQ 6H * Singulair 10mg PO daily * Fluticasone Propionate 2 puff INH BID 4) Constipation; resolved * Patient reports he feels constipation and has had last bowel movement on Thursday * Started on daily miralax, senna and docusate, per GI rec * Lactulose PRN if still constipated 5) History of Hypertension * Cozaar 25mg PO daily * monitor blood pressure vital signs 6) Prophylactic Care * Heparin 5000 units subq 8 H * Pepcid 20mg PO bid * Fall risk * PT/OT eval Case discussed with Dr. Brittnee Ugarte Jimy PGY1 <Garo Beaulieu H - Last Filed: 12/09/16 07:28> Objective - Vital Signs/Intake and Output Vital Signs (last 24 hours): Temp Pulse Resp BP Pulse Ox 97.4 F L 54 L 20 151/73 H 97 12/09/16 04:10 12/09/16 05:39 12/09/16 04:10 12/09/16 05:35 12/09/16 04:10 Intake and Output: 12/09/16 12/09/16 06:59 18:59 Intake Total 480 Output Total 900 Balance -420 - Medications Medications: Current Medications Albuterol (Ventolin Hfa 90 Mcg/Actuation (8 G)) 1 puff INH RQ6 PRN PRN Reason: Shortness of Breath Last Admin: 12/06/16 04:39 Dose: 1 puff Azithromycin (Zithromax) 250 mg PO DAILY [facility] Stop: 12/12/16 10:01 Last Admin: 12/08/16 09:33 Dose: 250 mg Docusate Sodium (Colace) 100 mg PO DAILY [facility] Famotidine (Pepcid) 20 mg PO BID [facility] Last Admin: 12/08/16 18:09 Dose: 20 mg Heparin Sodium (Porcine) (Heparin) 5,000 units SC Q8 [facility] Last Admin: 10/03/17 05:18 Dose: 5,000 units Levothyroxine Sodium (Synthroid) 75 mcg PO DAILY@0630 [facility] Last Admin: 12/09/16 05:33 Dose: 75 mcg Losartan Potassium (Cozaar) 25 mg PO DAILY [facility] Last Admin: 12/08/16 09:33 Dose: 25 mg Mometasone Furoate (Asmanex Twisthaler 110 Mcg) 1 puff INH BID [facility] Last Admin: 12/07/16 17:40 Dose: 1 puff Montelukast Sodium (Singulair) 10 mg PO HS [facility] Last Admin: 12/08/16 22:46 Dose: 10 mg Ondansetron HCl (Zofran Inj) 4 mg IVP Q6H PRN PRN Reason: Nausea/Vomiting Oxcarbazepine (Trileptal) 300 mg PO BID [facility] Last Admin: 12/08/16 18:09 Dose: 300 mg Polyethylene Glycol (Miralax) 17 gm PO BID [facility] Last Admin: 12/08/16 18:09 Dose: 17 gm Sennosides (Senokot Tab) 8.6 mg PO DAILY [facility] Last Admin: 12/08/16 09:33 Dose: 8.6 mg Vitamin B Complex/Vitamin C (Berocca) 1 tab PO DAILY [facility] Last Admin: 12/08/16 09:33 Dose: 1 tab - Labs Labs: 12/05/16 13:20 12/08/16 06:53 Attending/Attestation - Attestation I have personally seen and examined this patient.: Yes I have fully participated in the care of the patient.: Yes I have reviewed all pertinent clinical information, including history, physical exam and plan: Yes Notes (Text): 12/09/16 07:24 Medical Attending: Patient was seen and examined by me. Agree with the above note by the resident. This is my first time meeting the patient He was previously getting IVF with NSS due to intially having hyponatremia. This was held over the weekend due to elevated BP. When I came and saw the patient the Na had decreased again to 125. He was not in any acute distress when I saw him. He has had a very decreased appettite from what I understand,
[2016-12-09] MEDS ORDERED: Labetalol 25mg/5ml Syringe IVP STA (04:46)
[2016-12-09] MEDS: Levothyroxine 75 MCG TAB PO SCH (05:33)
[2016-12-09 07:44] LABS: CHLORIDE 91 mmol/L (98-107); POTASSIUM 4.6 mmol/L (3.6-5.2); SODIUM 127 mmol/L (132-148)
[2016-12-09 07:46] LABS: GFR AFRICAN-AMERICAN > 60
[2016-12-09 07:47] LABS: ALB/GLOB RATIO 1.1 (1.0-2.1); ALKALINE PHOSPHATASE 62 U/L (38-126); ALT/SGPT 33 U/L (21-72); AST/SGOT 21 U/L (17-59); BILIRUBIN,TOTAL 0.4 mg/dL (0.2-1.3); BLOOD UREA NITROGEN 11 mg/dL (9-20); CARBON DIOXIDE 26 mmol/L (22-30); GLUCOSE,RANDOM 87 mg/dL (75-110); TOTAL PROTEIN 6.8 g/dL (6.3-8.3)
[2016-12-09 07:48] LABS: CALCIUM 9.1 mg/dl (8.6-10.4)
--- NOTE | 2016-12-09 08:06 | CP.PCM.PN ---
Subjective - Date & Time of Evaluation Date of Evaluation: 12/08/16 Time of Evaluation: 18:30 - Subjective Subjective: Patient reports feeling well; tolerating diet; feels ready to go home; Objective - Vital Signs/Intake and Output Vital Signs (last 24 hours): Temp Pulse Resp BP Pulse Ox 97.4 F L 54 L 20 151/73 H 97 12/09/16 04:10 12/09/16 05:39 12/09/16 04:10 12/09/16 05:35 12/09/16 04:10 Intake and Output: 12/09/16 12/09/16 06:59 18:59 Intake Total 480 Output Total 900 Balance -420 - Medications Medications: Current Medications Albuterol (Ventolin Hfa 90 Mcg/Actuation (8 G)) 1 puff INH RQ6 PRN PRN Reason: Shortness of Breath Last Admin: 12/06/16 04:39 Dose: 1 puff Azithromycin (Zithromax) 250 mg PO DAILY [facility] Stop: 12/12/16 10:01 Last Admin: 12/08/16 09:33 Dose: 250 mg Docusate Sodium (Colace) 100 mg PO DAILY [facility] Famotidine (Pepcid) 20 mg PO BID [facility] Last Admin: 12/08/16 18:09 Dose: 20 mg Heparin Sodium (Porcine) (Heparin) 5,000 units SC Q8 [facility] Last Admin: 12/09/16 05:18 Dose: 5,000 units Levothyroxine Sodium (Synthroid) 75 mcg PO DAILY@0630 [facility] Last Admin: 12/09/16 05:33 Dose: 75 mcg Losartan Potassium (Cozaar) 25 mg PO DAILY [facility] Last Admin: 12/08/16 09:33 Dose: 25 mg Mometasone Furoate (Asmanex Twisthaler 110 Mcg) 1 puff INH BID [facility] Last Admin: 12/07/16 17:40 Dose: 1 puff Montelukast Sodium (Singulair) 10 mg PO HS [facility] Last Admin: 12/08/16 22:46 Dose: 10 mg Ondansetron HCl (Zofran Inj) 4 mg IVP Q6H PRN PRN Reason: Nausea/Vomiting Oxcarbazepine (Trileptal) 300 mg PO BID [facility] Last Admin: 12/08/16 18:09 Dose: 300 mg Polyethylene Glycol (Miralax) 17 gm PO BID [facility] Last Admin: 12/08/16 18:09 Dose: 17 gm Sennosides (Senokot Tab) 8.6 mg PO DAILY [facility] Last Admin: 12/08/16 09:33 Dose: 8.6 mg Vitamin B Complex/Vitamin C (Berocca) 1 tab PO DAILY [facility] Last Admin: 12/08/16 09:33 Dose: 1 tab - Labs Labs: 12/05/16 13:20 12/08/16 06:53 - Constitutional Appears: Non-toxic, No Acute Distress - Head Exam Head Exam: NORMAL INSPECTION - Eye Exam Eye Exam: Normal appearance - ENT Exam ENT Exam: Mucous Membranes Moist - Respiratory Exam Respiratory Exam: Clear to Ausculation Bilateral. absent: Rales, Rhonchi, Wheezes - Cardiovascular Exam Cardiovascular Exam: RRR, +S1, +S2 - GI/Abdominal Exam GI & Abdominal Exam: Soft. absent: Distended, Tenderness - Extremities Exam Additional comments: no leg edema; - Neurological Exam Neurological Exam: Alert, Awake - Psychiatric Exam Psychiatric exam: Normal Affect, Normal Mood - Skin Skin Exam: Warm. 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; NS discontinued as this can cause serum Na to drop further in the setting of SIADH; should be on fluid restriction < 1500 cc/day and have moderate salt intake (was previously adhering to salt restricted diet); I expect his serum Na to stabilize with these measures; can be followed as outpatient; Status: Acute (2) HTN (hypertension) Assessment & Plan: BP elevated but after being on NS for past 2+ days; should re-assess after being off IVF; continue losartan 25 mg daily for now; Status: Acute (3) Constipation Status: Acute (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
[2016-12-09] MEDS: Vitamin B Complex/Vitamin C Tab PO SCH (10:37)
[2016-12-09] MEDS: POLYETHYLENE GLYCOL 3350 17 GM/Dose PACKET PO SCH (10:38)
[2016-12-09 17:46] VITALS: BP 126/64; PULSE 57; RESP 18; TEMP 97.5; O2SAT 98
--- NOTE | 2016-12-09 22:03 | CARD ---
APPROVED REPORT EKG Measurement Heart [id number] <Conclusion> Sinus bradycardia with 1st degree AV block Cannot rule out Anterior infarct, age undetermined Abnormal ECG
--- NOTE | 2016-12-10 08:52 | CP.PCM.PN ---
Subjective - Date & Time of Evaluation Date of Evaluation: 12/09/16 Time of Evaluation: 12:15 - Subjective Subjective: Patient reports feeling well; no more issues with constipation; wants to go home ; Objective - Vital Signs/Intake and Output Vital Signs (last 24 hours): Temp Pulse Resp BP Pulse Ox 97.5 F L 57 L 18 126/64 98 12/09/16 15:05 12/09/16 15:05 12/09/16 15:05 12/09/16 15:05 12/09/16 15:05 - Labs Labs: 12/05/16 13:20 12/09/16 07:11 - Constitutional Appears: No Acute Distress - Head Exam Head Exam: NORMAL INSPECTION - Eye Exam Eye Exam: Normal appearance. absent: Scleral icterus - ENT Exam ENT Exam: Mucous Membranes Moist - Respiratory Exam Respiratory Exam: Clear to Ausculation Bilateral, Rhonchi. absent: Rales - Cardiovascular Exam Cardiovascular Exam: RRR, +S1, +S2 - GI/Abdominal Exam GI & Abdominal Exam: Soft. absent: Distended, Tenderness - Neurological Exam Neurological Exam: Alert, Awake - Psychiatric Exam Psychiatric exam: Normal Affect, Normal Mood - Skin Skin Exam: Normal Color, Warm. absent: Cyanosis Assessment and Plan (1) Hyponatremia Assessment & Plan: Improved; initially due to volume depletion; use of trileptal also contributory ; needs to be on fluid restriction and higher Na intake diet; explained to patient and primary team; would not alter trileptal dose at this time as he has been relatively stable on it with serum Na only mildly low previously; should f/ u w/ neuro and pmd; patient advised he can see us as outpatient if serum Na continues to remain low; otherwise is stable for d/c home from our end; Status: Acute (2) HTN (hypertension) Assessment & Plan: controlled; continue losartan 25 daily; Status: Chronic (3) Constipation Status: Acute (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
--- NOTE | 2016-12-14 09:20 | CP.PCM.DIS ---
<Torito Ahn - Last Filed: 12/14/16 09:17> Provider - Provider Date of Admission: 12/05/16 17:42 Attending physician: Sarahi Sung DO Time Spent in preparation of Discharge (in minutes): 20 Hospital Course - Lab Results Lab Results: Most Recent Lab Values WBC 7.0 K/uL (4.8-10.8) 12/05/16 13:20 RBC 4.01 Mil/uL (4.40-5.90) L 12/05/16 13:20 Hgb 12.5 g/dL (12.0-18.0) 12/05/16 13:20 Hct 36.8 % (35.0-51.0) 12/05/16 13:20 MCV 91.7 fL (80.0-94.0) 12/05/16 13:20 MCH 31.3 pg (27.0-31.0) H 12/05/16 13:20 MCHC 34.1 g/dL (33.0-37.0) 12/05/16 13:20 RDW 13.7 % (11.5-14.5) 12/05/16 13:20 Plt Count 211 K/uL (130-400) 12/05/16 13:20 MPV 8.6 fL (7.2-11.7) 12/05/16 13:20 Neut % (Auto) 75.2 % (50.0-75.0) H 12/05/16 13:20 Lymph % (Auto) 13.2 % (20.0-40.0) L 12/05/16 13:20 Ceiba % (Auto) 6.7 % (0.0-10.0) 12/05/16 13:20 Eos % (Auto) 4.0 % (0.0-4.0) 12/05/16 13:20 Baso % (Auto) 0.9 % (0.0-2.0) 12/05/16 13:20 Neut # 5.3 K/uL (1.8-7.0) 12/05/16 13:20 Lymph # 0.9 K/uL (1.0-4.3) L 12/05/16 13:20 Ceiba # 0.5 K/uL (0.0-0.8) 12/05/16 13:20 Eos # 0.3 K/uL (0.0-0.7) 12/05/16 13:20 Baso # 0.1 K/uL (0.0-0.2) 12/05/16 13:20 Sodium 127 mmol/L (132-148) L 12/09/16 07:11 Potassium 4.6 mmol/L (3.6-5.2) 12/09/16 07:11 Chloride 91 mmol/L (98-107) L 12/09/16 07:11 Carbon Dioxide 26 mmol/L (22-30) 12/09/16 07:11 Anion Gap 15 (10-20) 12/09/16 07:11 BUN 11 mg/dL (9-20) 12/09/16 07:11 Creatinine 0.8 MG/DL (0.8-1.5) 12/09/16 07:11 Est GFR ( Amer) > 60 12/09/16 07:11 Est GFR (Non-Af Amer) > 60 12/09/16 07:11 POC Glucose (mg/dL) 92 mg/dL (65-110) 12/09/16 17:12 Random Glucose 87 mg/dL (75-110) 12/09/16 07:11 Serum Osmolality 265 mosm/kg (272-300) L 12/06/16 11:18 Calcium 9.1 mg/dl (8.6-10.4) 12/09/16 07:11 Total Bilirubin 0.4 mg/dL (0.2-1.3) 12/09/16 07:11 AST 21 U/L (17-59) 12/09/16 07:11 ALT 33 U/L (21-72) 12/09/16 07:11 Alkaline Phosphatase 62 U/L (38-126) 12/09/16 07:11 Total Protein 6.8 g/dL (6.3-8.3) 12/09/16 07:11 Albumin 3.5 g/dL (3.5-5.0) 12/09/16 07:11 Globulin 3.3 gm/dL (2.2-3.9) 12/09/16 07:11 Albumin/Globulin Ratio 1.1 (1.0-2.1) 12/09/16 07:11 Lipase 40 U/L (23-300) 12/05/16 14:08 Free T4 0.93 ng/dL (0.78-2.19) 12/06/16 11:18 TSH 3rd Generation 1.37 mIU/L (0.46-4.68) 12/05/16 17:49 Urine Color Yellow (YELLOW) 12/05/16 14:59 Urine Clarity Clear (Clear) 12/05/16 14:59 Urine pH 6.0 (5.0-8.0) 12/05/16 14:59 Ur Specific [place] 1.013 (1.003-1.030) 12/05/16 14:59 Urine Protein Negative mg/dL (NEGATIVE) 12/05/16 14:59 Urine Glucose (UA) Normal mg/dL (Normal) 12/05/16 14:59 Urine Ketones Negative mg/dL (NEGATIVE) 12/05/16 14:59 Urine Blood Negative (NEGATIVE) 12/05/16 14:59 Urine Nitrate Negative (NEGATIVE) 12/05/16 14:59 Urine Bilirubin Negative (NEGATIVE) 12/05/16 14:59 Urine Urobilinogen Normal mg/dL (0.2-1.0) 12/05/16 14:59 Ur Leukocyte Esterase Neg Irma/uL (Negative) 12/05/16 14:59 Urine WBC (Auto) < 1 /hpf (0-5) 12/05/16 14:59 Urine RBC (Auto) < 1 /hpf (0-3) 12/05/16 14:59 Urine Bacteria Rare (<OCC) 12/05/16 14:59 Urine Osmolality 380 mosm/kg (300-1000) 12/08/16 19:32 Ur Random Sodium 86 mmol/L 12/08/16 19:32 Ur Random Potassium 45.6 mmol/L 12/05/16 14:59 Urine Chloride 105 mmol/L (32-290) 12/05/16 14:59 - Hospital Course Hospital Course: As per admission documentation, Patient is a 76 year old male with a past medical history of HTN, hypothyroidism and GERD presenting with nausea, vomiting and dysphagia. The patient states that he started getting nauseous 4 to 5 days ago. He reports that 2 days ago he starting vomiting everything that he ate. He states that he was unable to keep anything down. It did not matter if it was solid or liquid, anything that he swallowed came right back up. Patient describes vomit as undigested food, denies any blood or coffee ground appearance. Patient admits to decreased appetite. He states that he has not had a bowel movement since thursday or thursday, which is not normal for him. Patient denies any pain but states that he feels overall weak. Denies f/c, sob, abd pain, cp, cough, vision changes, headaches, numbness, tingling, syncope, lightheadedness, dizziness. Hospital course, Patient was admitted for Hypovolumeic Hyponatremia (Na 119) and dysphagia to liquids and solids. Neprology was consulted, Dr. Acosta. GI was consulted, Dr. Red. Patient was discussed with ICU but because he was neurologically intact and clinically dry, it was determined he was safe to replete on the telemetry. BMPs were checked every 4 hours during the first 24 hours to monitor sodium level. Serum osmol, urine osmol and urine sodiums were checked daily 12/05/16 Obstructive Series: no acute cardiopulmonary disease, no evidence acute mechanical bowel obstruction. 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 As per Dr. 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 It was recommended, by Dr. Acosta, that the patient not stop his trileptial as patient had be stable on it for a long period of time. It was only recent that he had a decrease in his sodium. Discharge Instructions 12/09/16, Patient is to be discharged home as per Dr. Beaulieu. Patient is follow up with his primary care physician, Dr. Jasso, within one week. Patient was instructed to make sure they eat plenty of food and to monitor his water intake. Patient is to continue taking his home medications as directed by Dr. Jasso. If patient begins to experience new or worsening symptoms, he is to return to the Emergency Department. Discharge Medications (prescriptions given) Norvasc 5mg PO daily Azithromycin 250mg PO daily for 3 more days, total of 5 days. Continue home medications - Date & Time of H&P Date of H&P: 12/05/16 Time of H&P: 20:25 Discharge Exam - Head Exam Head Exam: NORMAL INSPECTION - Eye Exam Eye Exam: EOMI, Normal appearance Pupil Exam: NORMAL ACCOMODATION - ENT Exam ENT Exam: Mucous Membranes Moist - Respiratory Exam Respiratory Exam: Clear to PA & Lateral, NORMAL BREATHING PATTERN - Cardiovascular Exam Cardiovascular Exam: REGULAR RHYTHM, +S1, +S2 - GI/Abdominal Exam GI & Abdominal Exam: Normal Bowel Sounds, Soft, Unremarkable. absent: Distended , Firm, Guarding, Tenderness - Extremities Exam Extremities exam: normal capillary refill, normal inspection, pedal pulses present - Neurological Exam Neurological exam: Alert, CN II-XII Intact, Normal Gait, Oriented x3 - Psychiatric Exam Psychiatric exam: Normal Affect, Normal Mood - Skin Skin Exam: Dry, Normal Color Discharge Plan - Discharge Medications Prescriptions: amLODIPine [Norvasc] 5 mg PO DAILY #30 tab Azithromycin [Zithromax] 250 mg PO DAILY #3 tab - Follow Up Plan Condition: STABLE Disposition: HOME/ ROUTINE Instructions: Azithromycin (By mouth), Amlodipine (By mouth), Heart Healthy Diet (DC), Hyponatremia (DC), Acute Nausea and Vomiting (DC), Hypertension (DC) Additional Instructions: Patient is to be discharged home as per Dr. Beaulieu. Patient is follow up with his primary care physician, Dr. Jasso, within one week. Patient was instructed to make sure they eat plenty of food and to monitor his water intake. Patient is to continue taking his home medications as directed by Dr. Jasso. If patient begins to experience new or worsening symptoms, he is to return to the Emergency Department. Discharge Medications (prescriptions given) Norvasc 5mg PO daily Azithromycin 250mg PO daily for 3 more days, total of 5 days. Continue home medications Referrals: Thee Jasso DO [Staff Provider] - <Garo Beaulieu - Last Filed: 12/14/16 13:35> Provider - Provider Date of Admission: 12/05/16 17:42 Attending physician: Sarahi Sung, [facility] Course - Lab Results Lab Results: Most Recent Lab Values WBC 7.0 K/uL (4.8-10.8) 12/05/16 13:20 RBC 4.01 Mil/uL (4.40-5.90) L 12/05/16 13:20 Hgb 12.5 g/dL (12.0-18.0) 12/05/16 13:20 Hct 36.8 % (35.0-51.0) 12/05/16 13:20 MCV 91.7 fL (80.0-94.0) 12/05/16 13:20 MCH 31.3 pg (27.0-31.0) H 12/05/16 13:20 MCHC 34.1 g/dL (33.0-37.0) 12/05/16 13:20 RDW 13.7 % (11.5-14.5) 12/05/16 13:20 Plt Count 211 K/uL (130-400) 12/05/16 13:20 MPV 8.6 fL (7.2-11.7) 12/05/16 13:20 Neut % (Auto) 75.2 % (50.0-75.0) H 12/05/16 13:20 Lymph % (Auto) 13.2 % (20.0-40.0) L 12/05/16 13:20 Ceiba % (Auto) 6.7 % (0.0-10.0) 12/05/16 13:20 Eos % (Auto) 4.0 % (0.0-4.0) 12/05/16 13:20 Baso % (Auto) 0.9 % (0.0-2.0) 12/05/16 13:20 Neut # 5.3 K/uL (1.8-7.0) 12/05/16 13:20 Lymph # 0.9 K/uL (1.0-4.3) L 12/05/16 13:20 Ceiba # 0.5 K/uL (0.0-0.8) 12/05/16 13:20 Eos # 0.3 K/uL (0.0-0.7) 12/05/16 13:20 Baso # 0.1 K/uL (0.0-0.2) 12/05/16 13:20 Sodium 127 mmol/L (132-148) L 12/09/16 07:11 Potassium 4.6 mmol/L (3.6-5.2) 12/09/16 07:11 Chloride 91 mmol/L (98-107) L 12/09/16 07:11 Carbon Dioxide 26 mmol/L (22-30) 12/09/16 07:11 Anion Gap 15 (10-20) 12/09/16 07:11 BUN 11 mg/dL (9-20) 12/09/16 07:11 Creatinine 0.8 MG/DL (0.8-1.5) 12/09/16 07:11 Est GFR ( Amer) > 60 12/09/16 07:11 Est GFR (Non-Af Amer) > 60 12/09/16 07:11 POC Glucose (mg/dL) 92 mg/dL (65-110) 12/09/16 17:12 Random Glucose 87 mg/dL (75-110) 12/09/16 07:11 Serum Osmolality 265 mosm/kg (272-300) L 12/06/16 11:18 Calcium 9.1 mg/dl (8.6-10.4) 12/09/16 07:11 Total Bilirubin 0.4 mg/dL (0.2-1.3) 12/09/16 07:11 AST 21 U/L (17-59) 12/09/16 07:11 ALT 33 U/L (21-72) 12/09/16 07:11 Alkaline Phosphatase 62 U/L (38-126) 12/09/16 07:11 Total Protein 6.8 g/dL (6.3-8.3) 12/09/16 07:11 Albumin 3.5 g/dL (3.5-5.0) 12/09/16 07:11 Globulin 3.3 gm/dL (2.2-3.9) 12/09/16 07:11 Albumin/Globulin Ratio 1.1 (1.0-2.1) 12/09/16 07:11 Lipase 40 U/L (23-300) 12/05/16 14:08 Free T4 0.93 ng/dL (0.78-2.19) 12/06/16 11:18 TSH 3rd Generation 1.37 mIU/L (0.46-4.68) 12/05/16 17:49 Urine Color Yellow (YELLOW) 12/05/16 14:59 Urine Clarity Clear (Clear) 12/05/16 14:59 Urine pH 6.0 (5.0-8.0) 12/05/16 14:59 Ur Specific [place] 1.013 (1.003-1.030) 12/05/16 14:59 Urine Protein Negative mg/dL (NEGATIVE) 12/05/16 14:59 Urine Glucose (UA) Normal mg/dL (Normal) 12/05/16 14:59 Urine Ketones Negative mg/dL (NEGATIVE) 12/05/16 14:59 Urine Blood Negative (NEGATIVE) 12/05/16 14:59 Urine Nitrate Negative (NEGATIVE) 12/05/16 14:59 Urine Bilirubin Negative (NEGATIVE) 12/05/16 14:59 Urine Urobilinogen Normal mg/dL (0.2-1.0) 12/05/16 14:59 Ur Leukocyte Esterase Neg Irma/uL (Negative) 12/05/16 14:59 Urine WBC (Auto) < 1 /hpf (0-5) 12/05/16 14:59 Urine RBC (Auto) < 1 /hpf (0-3) 12/05/16 14:59 Urine Bacteria Rare (<OCC) 12/05/16 14:59 Urine Osmolality 380 mosm/kg (300-1000) 12/08/16 19:32 Ur Random Sodium 86 mmol/L 12/08/16 19:32 Ur Random Potassium 45.6 mmol/L 12/05/16 14:59 Urine Chloride 105 mmol/L (32-290) 12/05/16 14:59 Attending/Attestation - Attestation I have personally seen and examined this patient.: Yes I have fully participated in the care of the patient.: Yes I have reviewed all pertinent clinical information, including history, physical exam and plan: Yes
== END 2016-12-09 18:01 | disposition home or self-care (01) | DRG 641 ==
LOC: C.ER 11:22 → C.9E 17:42 → C.6T 20:11
PROVIDERS: ADMIT Hospitalist; ATTEND Hospitalist
DX: E87.1 Hypo-osmolality and hyponatremia (principal); J44.9 Chronic obstructive pulmonary disease, unspecified; E86.0 Dehydration; K59.00 Constipation, unspecified; R13.10 Dysphagia, unspecified; I10 Essential (primary) hypertension; E03.9 Hypothyroidism, unspecified; T42.1X5A Adverse effect of iminostilbenes, initial encounter; K21.9 Gastro-esophageal reflux disease without esophagitis; M79.2 Neuralgia and neuritis, unspecified

== ENCOUNTER 2018-07-07 10:36 | Outpatient (CLI) | payer MEDICARE, OTHER | END 2018-07-07 10:37 | disposition home or self-care (01) | LOC: C.LAB 10:36 | DX: G50.0 Trigeminal neuralgia (principal) ==